=== PATIENT | male | born 1985 | race Caucasian/White ===

== ENCOUNTER 2016-06-23 05:10 | Emergency (ER) | payer SELFPAY ==
[~2016-06-23] VITALS: Ht 170.2 cm; Wt 90.7 kg
[~2016-06-23 05:10] MED LIST: HYDR-971 PO; SULF1TAB24 PO
[2016-06-23 06:05] LABS: BASO # 0.1 x10^3/uL (0.0-0.2); BASO % 1 % (0-3); EOS % 3 % (0-3); HEMATOCRIT 44.7 % (39.0-53.0); LYMPH # 3.7 x10^3/uL (1.0-4.8); LYMPH % 34 % (24-48); MEAN CORPUSCULAR HEMOGLOBIN 31 pg (25-35); MEAN CORPUSCULAR HGB CONC 34 g/dL (31-37); MEAN CORPUSCULAR VOLUME 93 fL (79-100); MONO % 8 % (0-9); NEUT % 53 % (31-73); PLATELET COUNT 258 x10^3/uL (140-400); RED BLOOD COUNT 4.81 x10^6/uL (4.30-5.70); RED CELL DISTRIBUTION WIDTH 13.6 % (11.5-14.5); WHITE BLOOD COUNT 10.8 x10^3/uL (4.0-11.0)
[2016-06-23 06:08] LABS: BILIRUBIN,URINE NEGATIVE (NEG); GLUCOSE,URINE NEGATIVE (NEG); NITRITE,URINE NEGATIVE (NEG); PH,URINE 6.5; PROTEIN,URINE NEGATIVE (NEG-TRACE); UROBILINOGEN,URINE 0.2 mg/dL (0.2 mg/dL)
[2016-06-23 06:09] LABS: BACTERIA,URINE 0 /HPF (0-FEW); RBC,URINE 0 /HPF (0-2); WBC,URINE 0 /HPF (0-4)
[2016-06-23] MEDS ORDERED: ONDANSETRON PF 4 MG/2 ML VIAL. ONE (06:14)
[2016-06-23] MEDS ORDERED: MORPHINE SULFATE 4 MG/ML DISP.SYRIN. ONE (06:14)
[2016-06-23 06:16] LABS: CALCIUM 8.9 mg/dL (8.5-10.1); CREATININE 0.8 mg/dL (0.7-1.3); GFR 113.5; POTASSIUM 3.5 mmol/L (3.5-5.1)
--- NOTE | 2016-06-23 06:18 | PHYS DOC ---
Past Medical History Past Medical History: No Pertinent History, Other Additional Past Medical Histor: lower back injury Past Surgical History: No Surgical History Alcohol Use: None Drug Use: None Adult General Chief Complaint Chief Complaint: ABDOMINAL PAIN HPI HPI Patient is a 30 year old male who presents with abdominal pain. Patient reports for the past few months he has been having intermittent pain in his RUQ. He says for the past 3 days he has been having "tight, stabbing" pain in his RUQ that is accompanied by nausea. The pain may be slightly better after eating. Otherwise no clear inciting or mitigating factors. He has not taken anything for pain. No other acute complaints. Review of Systems Review of Systems Constitutional: Denies fever or chills Eyes: Denies change in visual acuity or eye pain HENT: Denies nasal congestion or sore throat Respiratory: Denies cough or shortness of breath Cardiovascular: Denies chest pain GI: RUQ abdominal pain, nausea. Denies vomiting, bloody stools or diarrhea : Denies dysuria or hematuria Musculoskeletal: Denies back pain or joint pain Integument: Denies rash or skin lesions Neurologic: Denies headache, focal weakness or sensory changes Current Medications Current Medications Current Medications Medications (Trade) Dose Ordered Sig/Samantha Start Time Stop Time Status Last Admin Dose Admin Morphine Sulfate 4 mg STK-MED ONCE 06/23/16 06:14 06/23/16 06:15 DC Ondansetron HCl (Zofran) 4 mg STK-MED ONCE 06/23/16 06:14 06/23/16 06:15 DC Sodium Chloride (Iv Sodium Chloride 0.9% 1000ml Bag) 1,000 ml @ 1,000 mls/hr Q1H 06/23/16 06:30 06/23/16 07:29 06/23/16 06:15 1,000 MLS/HR Allergies Allergies Allergies Coded Allergies Type Severity Reaction Last Updated Verified No Known Drug Allergies 02/10/14 No Physical Exam Physical Exam Constitutional: Well developed, well nourished, no acute distress, non-toxic appearance HENT: Normocephalic, atraumatic, bilateral external ears normal Eyes: EOMI, conjunctiva normal, no discharge Neck: Normal range of motion, no stridor Cardiovascular: Heart rate normal, regular rhythm, no murmur Lungs & Thorax: Bilateral breath sounds clear to auscultation Abdomen: Bowel sounds normal, soft, non-distended, RUQ TTP without guarding or rebound Skin: Warm, dry, no erythema, no rash Extremities: No obvious deformity, no edema Neurologic: Alert and oriented X 3, no gross deficits noted Current Patient Data Vital Signs Vital Signs Date Time Temp Pulse Resp B/P Pulse Ox O2 Delivery O2 Flow Rate FiO2 06/23/16 06:16 16 Room Air 06/23/16 05:33 98.9 81 171/82 98 98.9 Lab Values Laboratory Tests Test 06/23/16 05:43 White Blood Count 10.8x10^3/uL (4.0-11.0) Red Blood Count 4.81x10^6/uL (4.30-5.70) Hemoglobin 15.0g/dL (13.0-17.5) Hematocrit 44.7% (39.0-53.0) Mean Corpuscular Volume 93fL (79-100) Mean Corpuscular Hemoglobin 31pg (25-35) Mean Corpuscular Hemoglobin Concent 34g/dL (31-37) Red Cell Distribution Width 13.6% (11.5-14.5) Platelet Count 258x10^3/uL (140-400) Neutrophils (%) (Auto) 53% (31-73) Lymphocytes (%) (Auto) 34% (24-48) Monocytes (%) (Auto) 8% (0-9) Eosinophils (%) (Auto) 3% (0-3) Basophils (%) (Auto) 1% (0-3) Neutrophils # (Auto) 5.8x10^3uL (1.8-7.7) Lymphocytes # (Auto) 3.7x10^3/uL (1.0-4.8) Monocytes # (Auto) 0.9x10^3/uL (0.0-1.1) Eosinophils # (Auto) 0.3x10^3/uL (0.0-0.7) Basophils # (Auto) 0.1x10^3/uL (0.0-0.2) Urine Collection Type Unknown Urine Color Yellow Urine Clarity Clear Urine pH 6.5 Urine Specific [place] <=1.005 Urine Protein Negativemg/dL (NEG-TRACE) Urine Glucose (UA) Negativemg/dL (NEG) Urine Ketones (Stick) Negativemg/dL (NEG) Urine Blood Negative (NEG) Urine Nitrite Negative (NEG) Urine Bilirubin Negative (NEG) Urine Urobilinogen Dipstick 0.2mg/dL (0.2 mg/dL) Urine Leukocyte Esterase Negative (NEG) Urine RBC 0/HPF (0-2) Urine WBC 0/HPF (0-4) Urine Bacteria 0/HPF (0-FEW) Sodium Level 142mmol/L (136-145) Potassium Level 3.5mmol/L (3.5-5.1) Chloride Level 105mmol/L (98-107) Carbon Dioxide Level 29mmol/L (21-32) Anion Gap 8 (6-14) Blood Urea Nitrogen 13mg/dL (8-26) Creatinine 0.8mg/dL (0.7-1.3) Estimated GFR (Cockcroft-Gault) 113.5 BUN/Creatinine Ratio 16 (6-20) Glucose Level 127mg/dL (70-99) H Calcium Level 8.9mg/dL (8.5-10.1) Total Bilirubin 0.6mg/dL (0.2-1.0) Aspartate Amino Transferase (AST) 14U/L (15-37) L Alanine Aminotransferase (ALT) 26U/L (16-63) Alkaline Phosphatase 75U/L (46-116) Total Protein 6.9g/dL (6.4-8.2) Albumin 3.9g/dL (3.4-5.0) Albumin/Globulin Ratio 1.3 (1.0-1.7) Lipase 129U/L (73-393) Laboratory Tests 06/23/16 05:43 Laboratory Tests 06/23/16 05:43 EKG EKG [] Radiology/Procedures Radiology/Procedures RUQ US: IMPRESSION - No acute sonographic abnormality. - Sludge filled gallbladder. Course & Med Decision Making Course & Med Decision Making Pertinent Labs and Imaging studies reviewed. (See chart for details) Patient is 30 year old male who presents with RUQ pain. DDx includes gallbladder disease, ulcer in duodenum, pancreatitis. Will check labs, UA, RUQ US. IVF, pain meds, nausea meds ordered for symptom relief. Labs and UA unremarkable. Imaging results as above. Discussed results with patient, as well as next steps in management of this. Will discharge with rx for pain meds, nausea meds, PPI. Given instructions for follow up and return precautions. Dragon Disclaimer Dragon Disclaimer This electronic medical record was generated, in whole or in part, using a voice recognition dictation system. Departure Departure Impression: Primary Impression: RUQ abdominal pain Disposition: HOME, SELF-CARE Condition: STABLE Referrals: NO PCP (PCP) YAMILA RAPHAEL MD Patient Instructions: Abdominal Pain (Nonspecific), Cholelithiasis Additional Instructions: Thank you for allowing us to provide care today in the Emergency Department. Take the provided medication as directed. Use caution when taking the pain medication as it can make you drowsy. Schedule a follow up appointment with your primary care doctor and with a surgeon using the provided contact information. Return promptly to the Emergency Department if you develop any new or concerning symptoms. Scripts Omeprazole 20 Mg Tablet.dr20 Mg PO DAILY #30 TAB Prov:ELIZABETH TORRES MD 06/23/16 Acetaminophen With Codeine (Tylenol With Codeine #3 Tablet)1 Each Tablet1 Tab PO PRN Q6HRS PRN PAIN #15 TAB Prov:ELIZABETH TORRES MD 06/23/16 Ondansetron (Zofran Odt)4 Mg Tab.rapdis1 Tab SL Q8HRS PRN NAUSEA #15 TAB Prov:ELIZABETH TORRES MD 06/23/16 ELIZABETH TORRES MD Jun 23, 2016 06:18
[2016-06-23 06:21] LABS: ALBUMIN 3.9 g/dL (3.4-5.0); ALBUMIN/GLOBULIN RATIO 1.3 (1.0-1.7); TOTAL BILIRUBIN 0.6 mg/dL (0.2-1.0); TOTAL PROTEIN 6.9 g/dL (6.4-8.2)
[2016-06-23] MEDS ORDERED: ONDANSETRON PF 4 MG/2 ML VIAL. IV ONE (06:30)
[2016-06-23] MEDS ORDERED: MORPHINE SULFATE 4 MG/ML DISP.SYRIN. IV ONE (06:30)
[2016-06-23] MEDS ORDERED: IV NORMAL SALINE 1000ML BAG 1,000 ML IV SCH (06:30)
--- NOTE | 2016-06-23 06:53 | RAD ---
PROCEDURE Right upper quadrant ultrasound dated 06/23/2016. HISTORY Right upper quadrant pain. TECHNIQUE Routine sonographic imaging performed. COMPARISON None. FINDINGS Liver is homogeneous in echogenicity. No focal hepatic mass. Biliary tree normal in caliber. Common bile duct measures 3 millimeter. Gallbladder is normal in size and echogenicity. No gallbladder wall thickening or pericholecystic fluid. No gallstones are seen. There is some dependent echogenic material consistent with sludge. Right kidney measures 11.2 centimeter in length without hydronephrosis. Left kidney was not imaged. Pancreas is not well visualized due to overlying bowel gas. No significant ascites. IMPRESSION - No acute sonographic abnormality. - Sludge filled gallbladder. Electronically signed by: Phan Motley (Jun 23, 2016 06:52:17)
[2016-06-23] MEDS ORDERED: ACET-704 PO (07:10)
[2016-06-23] MEDS ORDERED: ONDA4TAB10 SL (07:10)
[2016-06-23] MEDS ORDERED: OMEP20TA PO (07:10)
[2016-06-23 07:26] VITALS: BP 119/58
== END 2016-06-23 07:19 | disposition home or self-care (01) ==
LOC: ER 05:10
DX: R10.11 Right upper quadrant pain (principal); R11.0 Nausea
CPT/HCPCS: 36415; 76705; 80053; 81001; 83690; 85027; 96361; 96374; 96375; 99285; J2270; J2405; J7030

== ENCOUNTER 2017-03-03 21:26 | Inpatient (IN) | payer OTHER ==
[~2017-03-03] VITALS: Ht 170.2 cm; Wt 95.9 kg
[~2017-03-03 21:26] MED LIST changes: +ACET-704 PO; +OMEP20TA8 PO; +ONDA4TAB10 SL
[2017-03-03] MEDS ORDERED: IV NORMAL SALINE 500ML BAG 500 ML IV PRN (22:00)
[2017-03-03] MEDS ORDERED: VANCOMYCIN 2 GM in IV DEXTROSE 5% 500 ML IV ONE (22:30)
[2017-03-03] MEDS ORDERED: ACETAMINOPHEN 500 MG TABLET PO ONE (22:30)
[2017-03-03 22:39] LABS: BASO # 0.1 x10^3/uL (0.0-0.2); BASO % 1 % (0-3); EOS % 2 % (0-3); HEMATOCRIT 45.2 % (39.0-53.0); HEMOGLOBIN 15.3 g/dL (13.0-17.5); LYMPH # 2.3 x10^3/uL (1.0-4.8); LYMPH % 14 % (24-48); MEAN CORPUSCULAR HEMOGLOBIN 32 pg (25-35); MEAN CORPUSCULAR HGB CONC 34 g/dL (31-37); MEAN CORPUSCULAR VOLUME 95 fL (79-100); MONO % 8 % (0-9); NEUT % 76 % (31-73); PLATELET COUNT 259 x10^3/uL (140-400); RED BLOOD COUNT 4.76 x10^6/uL (4.30-5.70)
--- NOTE | 2017-03-03 22:46 | PHYS DOC ---
Past Medical History Past Medical History: No Pertinent History, Other Additional Past Medical Histor: lower back injury Past Surgical History: No Surgical History Alcohol Use: None Drug Use: None Adult General Chief Complaint Chief Complaint: ABSCESS HPI HPI Patient is a 31 year old male with history of smoking and pilonidal cysts who presents today complaining of a pilonidal cyst on his rectum for 3 years that started getting worse in the last 3 days. Patient states the area has grown bigger and red. He states he is also having subjective fevers as well as nausea but no vomiting. PCP none Review of Systems Review of Systems Constitutional: Subjective fevers Eyes: Denies change in visual acuity, redness, or eye pain [] HENT: Denies nasal congestion or sore throat [] Respiratory: Denies cough or shortness of breath [] Cardiovascular: No additional information not addressed in HPI [] GI: Reports nausea Denies abdominal pain, vomiting, bloody stools or diarrhea [ ] : Denies dysuria or hematuria [] Musculoskeletal: Denies back pain or joint pain [] Integument: Pilonidal cyst Neurologic: Denies headache, focal weakness or sensory changes [] All other systems were reviewed and found to be within normal limits, except as documented in this note. Current Medications Current Medications Current Medications Medications (Trade) Dose Ordered Sig/Samantha Start Time Stop Time Status Last Admin Dose Admin Acetaminophen (Tylenol) 1,000 mg 1X ONCE 03/03/17 22:30 03/03/17 22:31 DC 03/03/17 22:49 1,000 MG Sodium Chloride 500 ml @ 1,000 mls/hr PRN Q30MIN PRN 03/03/17 22:00 Vancomycin HCl (Vanco Per Pharmacy) 1 each PRN DAILY PRN 03/03/17 22:00 UNV Vancomycin HCl 2 gm/Dextrose 500 ml @ 250 mls/hr 1X ONCE 03/03/17 22:30 03/04/17 00:29 03/03/17 22:49 250 MLS/HR Allergies Allergies Allergies Coded Allergies Type Severity Reaction Last Updated Verified No Known Drug Allergies 02/10/14 No Physical Exam Physical Exam Constitutional: Well developed, well nourished, no acute distress, non-toxic appearance. [] HENT: Normocephalic, atraumatic, bilateral external ears normal, oropharynx moist, no oral exudates, nose normal. [] Eyes: PERRLA, EOMI, conjunctiva normal, no discharge. [] Neck: Normal range of motion, no tenderness, supple, no stridor. [] Cardiovascular:Heart rate regular rhythm, no murmur [] Lungs & Thorax: Bilateral breath sounds clear to auscultation [] Abdomen: Bowel sounds normal, soft, no tenderness, no masses, no pulsatile masses. [] Skin: Warm, dry, no erythema, no rash. [] Rectum with induration consistent of pilonidal cyst. There is cellulitis approximately 10 x 4 cm on the right buttock and another area of cellulitis approximately 2 x 1 cm on the left buttock. There is no fluctuance to the cyst. Back: No tenderness, no CVA tenderness. [] Extremities: No tenderness, no cyanosis, no clubbing, ROM intact, no edema. [] Neurologic: Alert and oriented X 3, normal motor function, normal sensory function, no focal deficits noted. [] Psychologic: Affect normal, judgement normal, mood normal. [] Current Patient Data Vital Signs Vital Signs Date Time Temp Pulse Resp B/P (MAP) Pulse Ox O2 Delivery O2 Flow Rate FiO2 03/03/17 22:32 112 22 146/71 (96) 96 Room Air 03/03/17 21:28 100.4 100.4 Lab Values Laboratory Tests Test 03/03/17 22:30 White Blood Count 16.0 x10^3/uL (4.0-11.0) H Red Blood Count 4.76 x10^6/uL (4.30-5.70) Hemoglobin 15.3 g/dL (13.0-17.5) Hematocrit 45.2 % (39.0-53.0) Mean Corpuscular Volume 95 fL (79-100) Mean Corpuscular Hemoglobin 32 pg (25-35) Mean Corpuscular Hemoglobin Concent 34 g/dL (31-37) Red Cell Distribution Width 13.0 % (11.5-14.5) Platelet Count 259 x10^3/uL (140-400) Neutrophils (%) (Auto) 76 % (31-73) H Lymphocytes (%) (Auto) 14 % (24-48) L Monocytes (%) (Auto) 8 % (0-9) Eosinophils (%) (Auto) 2 % (0-3) Basophils (%) (Auto) 1 % (0-3) Neutrophils # (Auto) 12.2 x10^3uL (1.8-7.7) H Lymphocytes # (Auto) 2.3 x10^3/uL (1.0-4.8) Monocytes # (Auto) 1.2 x10^3/uL (0.0-1.1) H Eosinophils # (Auto) 0.2 x10^3/uL (0.0-0.7) Basophils # (Auto) 0.1 x10^3/uL (0.0-0.2) Erythrocyte Sedimentation Rate 8 (0-15) Prothrombin Time 12.0 SEC (11.7-14.0) Prothrombin Time INR 0.9 (0.8-1.1) PTT 32 SEC (24-38) Sodium Level 141 mmol/L (136-145) Potassium Level 4.2 mmol/L (3.5-5.1) Chloride Level 103 mmol/L (98-107) Carbon Dioxide Level 28 mmol/L (21-32) Anion Gap 10 (6-14) Blood Urea Nitrogen 17 mg/dL (8-26) Creatinine 0.8 mg/dL (0.7-1.3) Estimated GFR (Cockcroft-Gault) 112.8 BUN/Creatinine Ratio 21 (6-20) H Glucose Level 99 mg/dL (70-99) Lactic Acid Level 1.2 mmol/L (0.4-2.0) Calcium Level 9.2 mg/dL (8.5-10.1) Total Bilirubin 0.3 mg/dL (0.2-1.0) Aspartate Amino Transferase (AST) 36 U/L (15-37) Alanine Aminotransferase (ALT) 84 U/L (16-63) H Alkaline Phosphatase 94 U/L (46-116) C-Reactive Protein, Quantitative 32.2 mg/L (0-3.3) H Total Protein 6.8 g/dL (6.4-8.2) Albumin 3.8 g/dL (3.4-5.0) Albumin/Globulin Ratio 1.3 (1.0-1.7) Laboratory Tests 03/03/17 22:30 Laboratory Tests 03/03/17 22:30 EKG EKG [] Radiology/Procedures Radiology/Procedures []PROCEDURE: CT ABD PELV W/ IV CONTRST ONLY PQRS Compliance Statement: One or more of the following individualized dose reduction techniques were utilized for this examination: 1. Automated exposure control 2. Adjustment of the mA and/or kV according to patient size 3. Use of iterative reconstruction technique CT abdomen/pelvis with contrast 03/03/2017 INDICATION: Pilonidal abscess. COMPARISON: None available TECHNIQUE: Multiple axial CT images of the abdomen and pelvis were obtained after the intravenous administration of 75 cc Omnipaque 300. Coronal and sagittal reformats are provided. FINDINGS: There is subsegmental atelectasis at the right lung base. Heart size is within normal limits. The liver, spleen, bilateral adrenal glands, pancreas and gallbladder are within normal limits. The abdominal aorta is normal in course and caliber. There are no pathologically enlarged lymph nodes in abdomen or pelvis. There is no free fluid or free intraperitoneal air. The kidneys enhance symmetrically. No suspicious renal mass is identified. There are no renal calculi identified. There is no hydronephrosis. No calculi within the ureters or urinary bladder. Urinary bladder is within normal limits given degree of distention. Small large bowel are normal in caliber without evidence for bowel obstruction. Distal colon is decompressed, limiting evaluation. Normal appendix is visualized. No pericolonic inflammatory changes are present. There are no suspicious pelvic masses. Prostate and seminal vesicles appear normal. No suspicious osseous lesions are identified. There is a pilonidal rim-enhancing collection measuring 2.4 x 2.8 x 3.3 cm compatible with an abscess. Extensive subcutaneous fat infiltration is noted compatible with edema. There is associated skin thickening. IMPRESSION: Findings are compatible with a pilonidal abscess measuring 2.4 x 2.8 x 2.3 cm. No underlying fistulous tract is suspected. Electronically signed by: Alondra Hernandez MD (03/03/2017 11:41 PM) [facility] Course & Med Decision Making Course & Med Decision Making Pertinent Labs and Imaging studies reviewed. (See chart for details) This is a 31-year-old male patient presenting today with pilonidal cyst. He has had it for 3 years but got worse in the last 3 days. Patient is tachycardic with a HR of 113 and fever of 100.4. He has history of smoking and was encouraged to consider smoking cessation. CBC with a WBC of 16.0. Patient will be admitted. Consult to be placed for general surgery for tomorrow morning. Dr. Gonsalves accepted patient for admission. He was started on IV fluids and sepsis protocol including antibiotics. CT of the abdomen and pelvic confirmed pilonidal abscess. Dragon Disclaimer Dragon Disclaimer This electronic medical record was generated, in whole or in part, using a voice recognition dictation system. Departure Departure Impression: Primary Impression: Cellulitis and abscess of buttock Additional Impressions: Smoking addiction Pilonidal abscess Disposition: ADMITTED INPATIENT Condition: STABLE Referrals: NO PCP (PCP) Problem Qualifiers ROSITA MEJÍA [employer] ADMIN[employer]RATOR Mar 03, 2017 22:46
[2017-03-03] MEDS: IV NORMAL SALINE 1000ML BAG 1,000 ML IV SCH ×3 (22:48→23:24)
[2017-03-03 22:50] LABS: INR 0.9 (0.8-1.1)
[2017-03-03 23:02] LABS: CALCIUM 9.2 mg/dL (8.5-10.1); CREATININE 0.8 mg/dL (0.7-1.3); GFR 112.8; POTASSIUM 4.2 mmol/L (3.5-5.1)
[2017-03-03 23:07] LABS: ALBUMIN 3.8 g/dL (3.4-5.0); ALBUMIN/GLOBULIN RATIO 1.3 (1.0-1.7); C-REACTIVE PROTEIN 32.2 mg/L (0-3.3); TOTAL BILIRUBIN 0.3 mg/dL (0.2-1.0); TOTAL PROTEIN 6.8 g/dL (6.4-8.2)
[2017-03-03] MEDS ORDERED: ACETAMINOPHEN 325 MG TABLET. PO PRN (23:15)
[2017-03-03] MEDS ORDERED: IV NORMAL SALINE 1000ML BAG 1,000 ML IV ONE (23:15)
[2017-03-03] MEDS ORDERED: ONDANSETRON PF 4 MG/2 ML VIAL. IV PRN (23:15)
[2017-03-03] MEDS ORDERED: IOHEXOL 300 MG/ML 100ML VIAL. IV ONE (23:15)
[2017-03-03] MEDS ORDERED: CONTRAST GIVEN MC PRN (23:30)
--- NOTE | 2017-03-03 23:45 | RAD ---
PQRS Compliance Statement: One or more of the following individualized dose reduction techniques were utilized for this examination: 1. Automated exposure control 2. Adjustment of the mA and/or kV according to patient size 3. Use of iterative reconstruction technique CT abdomen/pelvis with contrast 03/03/2017 INDICATION: Pilonidal abscess. COMPARISON: None available TECHNIQUE: Multiple axial CT images of the abdomen and pelvis were obtained after the intravenous administration of 75 cc Omnipaque 300. Coronal and sagittal reformats are provided. FINDINGS: There is subsegmental atelectasis at the right lung base. Heart size is within normal limits. The liver, spleen, bilateral adrenal glands, pancreas and gallbladder are within normal limits. The abdominal aorta is normal in course and caliber. There are no pathologically enlarged lymph nodes in abdomen or pelvis. There is no free fluid or free intraperitoneal air. The kidneys enhance symmetrically. No suspicious renal mass is identified. There are no renal calculi identified. There is no hydronephrosis. No calculi within the ureters or urinary bladder. Urinary bladder is within normal limits given degree of distention. Small large bowel are normal in caliber without evidence for bowel obstruction. Distal colon is decompressed, limiting evaluation. Normal appendix is visualized. No pericolonic inflammatory changes are present. There are no suspicious pelvic masses. Prostate and seminal vesicles appear normal. No suspicious osseous lesions are identified. There is a pilonidal rim-enhancing collection measuring 2.4 x 2.8 x 3.3 cm compatible with an abscess. Extensive subcutaneous fat infiltration is noted compatible with edema. There is associated skin thickening. IMPRESSION: Findings are compatible with a pilonidal abscess measuring 2.4 x 2.8 x 2.3 cm. No underlying fistulous tract is suspected. Electronically signed by: Alondra Hernandez MD (03/03/2017 11:41 PM) [facility]
[2017-03-03 23:53] VITALS: BP 134/82
[2017-03-04] VITALS (14 sets, daily range): BP systolic 98–144; BP diastolic 48–88
[2017-03-04] MEDS: IBUPROFEN 800 MG TABLET. PO PRN ×2 (00:10→20:36)
[2017-03-04] MEDS: MORPHINE SULFATE 4 MG/ML DISP.SYRIN. IV PRN ×5 (00:10→16:06)
[2017-03-04] MEDS: VANCOMYCIN PER PHARMACY MC PRN ×3 (00:21→23:37)
[2017-03-04 05:35] LABS: BASO # 0.1 x10^3/uL (0.0-0.2); BASO % 1 % (0-3); EOS % 2 % (0-3); HEMATOCRIT 45.5 % (39.0-53.0); LYMPH # 2.7 x10^3/uL (1.0-4.8); LYMPH % 20 % (24-48); MEAN CORPUSCULAR HEMOGLOBIN 31 pg (25-35); MEAN CORPUSCULAR HGB CONC 33 g/dL (31-37); MEAN CORPUSCULAR VOLUME 95 fL (79-100); MONO % 8 % (0-9); NEUT % 70 % (31-73); PLATELET COUNT 229 x10^3/uL (140-400); RED CELL DISTRIBUTION WIDTH 12.9 % (11.5-14.5); WHITE BLOOD COUNT 13.6 x10^3/uL (4.0-11.0)
[2017-03-04 06:06] LABS: CALCIUM 8.6 mg/dL (8.5-10.1); CREATININE 0.8 mg/dL (0.7-1.3)
[2017-03-04 06:07] LABS: GFR 112.8; POTASSIUM 3.7 mmol/L (3.5-5.1)
[2017-03-04] MEDS ORDERED: VANCOMYCIN 1.75 GM in IV DEXTROSE 5% 500 ML IV SCH (07:00)
[2017-03-04] MEDS: NICOTINE 21MG PATCH. TD SCH (09:00)
[2017-03-04] MEDS ORDERED: VANCOMYCIN PER PHARMACY MC SCH (09:00)
--- NOTE | 2017-03-04 10:58 | PDOC2 ---
SUNG MARIA MERCHANDISER RETAIL REPRESENTATIVE 03/04/17 1058: CONSULT Date of Consult Date of Consult DATE: 03/04/17 TIME: 10:53 Reason for Consult Reason for Consult: abscess Referring Physician Referring Physician: ER Identification/Chief Complaint Chief Complaint abscess Problems: Source Source: Chart review, Patient History of Present Illness Reason for Visit: pain to coccyx x 3 days. Increased pain and swelling. Started yesterday with fevers and chills. Reports history of these similar, but never this bad and has not required surgery Past Medical History Past Medical History no pertinent hx Past Surgical History Past Surgical History: No pertinent history Family History Family History: Diabetes Social History <1 pack per day ALCOHOL: none Drugs: None Lives: with Family Current Problem List Problem List Problems Medical Problems: (1) Cellulitis and abscess of buttock Status: Acute (2) Pilonidal abscess Status: Acute (3) Pilonidal cyst Status: Acute (4) Smoking addiction Status: Acute Current Medications Current Medications Current Medications Sodium Chloride 1,000 ml @ 3,390 mls/hr Q18M IV Last administered on 22:48; Start 03/03/17 at 22:30; Stop 03/03/17 at 23:29; Status DC Sodium Chloride 500 ml @ 1,000 mls/hr PRN Q30MIN PRN IV SEE COMMENTS; Start 03/03/17 at 22:00 Vancomycin HCl (Vanco Per Pharmacy) 1 each PRN DAILY PRN MC SEE COMMENTS Last administered on 03/04/17 00:21; Start 03/03/17 at 22:00 Acetaminophen (Tylenol) 1,000 mg 1X ONCE PO Last administered on 03/03/17 22 :49; Start 03/03/17 at 22:30; Stop 03/03/17 at 22:31; Status DC Vancomycin HCl 2 gm/Dextrose 500 ml @ 250 mls/hr 1X ONCE IV Last administered on 03/03/17 22:49; Start 03/03/17 at 22:30; Stop 03/04/17 at 00 :29; Status DC Ondansetron HCl (Zofran) 4 mg PRN Q8HRS PRN IV NAUSEA/VOMITING; Start at 23:15; Stop 03/04/17 at 23:14 Morphine Sulfate 2 mg PRN Q2HR PRN IV PAIN Last administered on 03/04/17 08: 18; Start 03/03/17 at 23:15; Stop 03/04/17 at 23:14 Acetaminophen (Tylenol) 650 mg PRN Q4HRS PRN PO FEVER; Start 03/03/17 at 23:15 ; Stop 03/04/17 at 23:14 Ibuprofen (Motrin) 800 mg PRN Q8HRS PRN PO FEVER Last administered on 00:10; Start 03/03/17 at 23:15 Sodium Chloride 1,000 ml @ 125 mls/hr 1X ONCE IV Last administered on 02:31; Start 03/03/17 at 23:15; Stop 03/04/17 at 07:14; Status DC Vancomycin HCl (Vanco Per Pharmacy) 1 each DAILY MC ; Start 03/04/17 at 09:00; Status UNV Nicotine (Nicoderm Cq 21mg) 1 patch DAILY TD ; Start 03/04/17 at 09:00 Iohexol (Omnipaque 300 Mg/ml) 75 ml 1X ONCE IV Last administered on 23:26; Start 03/03/17 at 23:15; Stop 03/03/17 at 23:16; Status DC Info (Do NOT chart on this entry -- for MONITORING) 1 each PRN DAILY PRN MC SEE COMMENTS; Start 03/03/17 at 23:30; Stop 03/05/17 at 23:29 Vancomycin HCl 1.75 gm/Dextrose 500 ml @ 250 mls/hr Q8H IV Last administered on 03/04/17 06:12; Start 03/04/17 at 07:00 Vancomycin HCl 1 each 1X ONCE MC ; Start 03/04/17 at 22:30; Stop 03/04/17 at 22:31 Active Scripts Active Omeprazole 20 Mg Tablet. 20 Mg PO DAILY Tylenol With Codeine #3 Tablet (Acetaminophen/Codeine Phosphate) 1 Each Tablet 1 Tab PO PRN Q6HRS PRN Zofran Odt (Ondansetron) 4 Mg Tab.rapdis 1 Tab SL Q8HRS PRN [place] 5-325 Tablet (Acetaminophen/Hydrocodone Bitart) 1 Each Tablet 1 Tab PO PRN Q6HRS PRN Bactrim Ds Tablet (Sulfamethoxazole/Trimethoprim) 1 Each Tablet 1 Tab PO BID Allergies Allergies: Coded Allergies: No Known Drug Allergies (Unverified , 02/10/14) ROS General: YES: Fatigue, Appetite (loss) PSYCHOLOGICAL ROS: No: Anxiety, Depression Eyes: No Blurry vision, No Double vision HEENT: No: Heacaches, Sore Throat Hematological and Lymphatic: No: Bleeding Problems, Blood Clots Respiratory: No: Cough, Shortness of breath Cardiovascular: No Chest Pain, No Palpitations Gastrointestinal: No Diarrhea, No Constipation Genitourinary: No Dysuria, No Hematuria Musculoskeletal: Yes Swelling In: (coccyx), No Joint Pain Neurological: No Confusion, No Impaired Coord/balance Skin: Yes Other (see hpi) Physical Exam General: Alert, Oriented X3, Cooperative, No acute distress HEENT: PERRLA, Mucous membr. moist/pink Lungs: Clear to auscultation, Normal air movement Heart: Regular rate, Normal S1, Normal S2, No murmurs Abdomen: Normal bowel sounds, Soft, No tenderness, No hepatosplenomegaly, No masses Extremities: No clubbing, No cyanosis, No edema, Normal pulses, No tenderness/ swelling Skin: Other (coccyx with erythema, induration, tenderness and fluctuance) Neuro: Normal gait, Normal speech Psych/Mental Status: Mental status NL, Mood NL MUSCULOSKELETAL: No deformity, No swelling Vitals VITALS Vital Signs Date Time Temp Pulse Resp B/P (MAP) Pulse Ox O2 Delivery O2 Flow Rate FiO2 03/04/17 10:37 Room Air 03/04/17 06:31 20 93 03/04/17 03:00 99.2 102 127/76 (93) 99.2 Labs Labs Laboratory Tests Test 03/03/17 22:30 03/04/17 04:20 White Blood Count 16.0 x10^3/uL (4.0-11.0) 13.6 x10^3/uL (4.0-11.0) Red Blood Count 4.76 x10^6/uL (4.30-5.70) 4.80 x10^6/uL (4.30-5.70) Hemoglobin 15.3 g/dL (13.0-17.5) 15.0 g/dL (13.0-17.5) Hematocrit 45.2 % (39.0-53.0) 45.5 % (39.0-53.0) Mean Corpuscular Volume 95 fL (79-100) 95 fL (79-100) Mean Corpuscular Hemoglobin 32 pg (25-35) 31 pg (25-35) Mean Corpuscular Hemoglobin Concent 34 g/dL (31-37) 33 g/dL (31-37) Red Cell Distribution Width 13.0 % (11.5-14.5) 12.9 % (11.5-14.5) Platelet Count 259 x10^3/uL (140-400) 229 x10^3/uL (140-400) Neutrophils (%) (Auto) 76 % (31-73) 70 % (31-73) Lymphocytes (%) (Auto) 14 % (24-48) 20 % (24-48) Monocytes (%) (Auto) 8 % (0-9) 8 % (0-9) Eosinophils (%) (Auto) 2 % (0-3) 2 % (0-3) Basophils (%) (Auto) 1 % (0-3) 1 % (0-3) Neutrophils # (Auto) 12.2 x10^3uL (1.8-7.7) 9.5 x10^3uL (1.8-7.7) Lymphocytes # (Auto) 2.3 x10^3/uL (1.0-4.8) 2.7 x10^3/uL (1.0-4.8) Monocytes # (Auto) 1.2 x10^3/uL (0.0-1.1) 1.1 x10^3/uL (0.0-1.1) Eosinophils # (Auto) 0.2 x10^3/uL (0.0-0.7) 0.3 x10^3/uL (0.0-0.7) Basophils # (Auto) 0.1 x10^3/uL (0.0-0.2) 0.1 x10^3/uL (0.0-0.2) Erythrocyte Sedimentation Rate 8 (0-15) Prothrombin Time 12.0 SEC (11.7-14.0) Prothromb Time International Ratio 0.9 (0.8-1.1) Activated Partial Thromboplast Time 32 SEC (24-38) Sodium Level 141 mmol/L (136-145) 141 mmol/L (136-145) Potassium Level 4.2 mmol/L (3.5-5.1) 3.7 mmol/L (3.5-5.1) Chloride Level 103 mmol/L (98-107) 107 mmol/L (98-107) Carbon Dioxide Level 28 mmol/L (21-32) 25 mmol/L (21-32) Anion Gap 10 (6-14) 9 (6-14) Blood Urea Nitrogen 17 mg/dL (8-26) 15 mg/dL (8-26) Creatinine 0.8 mg/dL (0.7-1.3) 0.8 mg/dL (0.7-1.3) Estimated GFR (Cockcroft-Gault) 112.8 112.8 BUN/Creatinine Ratio 21 (6-20) Glucose Level 99 mg/dL (70-99) 91 mg/dL (70-99) Lactic Acid Level 1.2 mmol/L (0.4-2.0) Calcium Level 9.2 mg/dL (8.5-10.1) 8.6 mg/dL (8.5-10.1) Total Bilirubin 0.3 mg/dL (0.2-1.0) Aspartate Amino Transf (AST/SGOT) 36 U/L (15-37) Alanine Aminotransferase (ALT/SGPT) 84 U/L (16-63) Alkaline Phosphatase 94 U/L (46-116) C-Reactive Protein, Quantitative 32.2 mg/L (0-3.3) Total Protein 6.8 g/dL (6.4-8.2) Albumin 3.8 g/dL (3.4-5.0) Albumin/Globulin Ratio 1.3 (1.0-1.7) Procalcitonin < 0.10 ng/mL (0.00-0.10) Laboratory Tests Test 03/03/17 22:30 03/04/17 04:20 White Blood Count 16.0 x10^3/uL (4.0-11.0) 13.6 x10^3/uL (4.0-11.0) Red Blood Count 4.76 x10^6/uL (4.30-5.70) 4.80 x10^6/uL (4.30-5.70) Hemoglobin 15.3 g/dL (13.0-17.5) 15.0 g/dL (13.0-17.5) Hematocrit 45.2 % (39.0-53.0) 45.5 % (39.0-53.0) Mean Corpuscular Volume 95 fL (79-100) 95 fL (79-100) Mean Corpuscular Hemoglobin 32 pg (25-35) 31 pg (25-35) Mean Corpuscular Hemoglobin Concent 34 g/dL (31-37) 33 g/dL (31-37) Red Cell Distribution Width 13.0 % (11.5-14.5) 12.9 % (11.5-14.5) Platelet Count 259 x10^3/uL (140-400) 229 x10^3/uL (140-400) Neutrophils (%) (Auto) 76 % (31-73) 70 % (31-73) Lymphocytes (%) (Auto) 14 % (24-48) 20 % (24-48) Monocytes (%) (Auto) 8 % (0-9) 8 % (0-9) Eosinophils (%) (Auto) 2 % (0-3) 2 % (0-3) Basophils (%) (Auto) 1 % (0-3) 1 % (0-3) Neutrophils # (Auto) 12.2 x10^3uL (1.8-7.7) 9.5 x10^3uL (1.8-7.7) Lymphocytes # (Auto) 2.3 x10^3/uL (1.0-4.8) 2.7 x10^3/uL (1.0-4.8) Monocytes # (Auto) 1.2 x10^3/uL (0.0-1.1) 1.1 x10^3/uL (0.0-1.1) Eosinophils # (Auto) 0.2 x10^3/uL (0.0-0.7) 0.3 x10^3/uL (0.0-0.7) Basophils # (Auto) 0.1 x10^3/uL (0.0-0.2) 0.1 x10^3/uL (0.0-0.2) Erythrocyte Sedimentation Rate 8 (0-15) Prothrombin Time 12.0 SEC (11.7-14.0) Prothromb Time International Ratio 0.9 (0.8-1.1) Activated Partial Thromboplast Time 32 SEC (24-38) Sodium Level 141 mmol/L (136-145) 141 mmol/L (136-145) Potassium Level 4.2 mmol/L (3.5-5.1) 3.7 mmol/L (3.5-5.1) Chloride Level 103 mmol/L (98-107) 107 mmol/L (98-107) Carbon Dioxide Level 28 mmol/L (21-32) 25 mmol/L (21-32) Anion Gap 10 (6-14) 9 (6-14) Blood Urea Nitrogen 17 mg/dL (8-26) 15 mg/dL (8-26) Creatinine 0.8 mg/dL (0.7-1.3) 0.8 mg/dL (0.7-1.3) Estimated GFR (Cockcroft-Gault) 112.8 112.8 BUN/Creatinine Ratio 21 (6-20) Glucose Level 99 mg/dL (70-99) 91 mg/dL (70-99) Lactic Acid Level 1.2 mmol/L (0.4-2.0) Calcium Level 9.2 mg/dL (8.5-10.1) 8.6 mg/dL (8.5-10.1) Total Bilirubin 0.3 mg/dL (0.2-1.0) Aspartate Amino Transf (AST/SGOT) 36 U/L (15-37) Alanine Aminotransferase (ALT/SGPT) 84 U/L (16-63) Alkaline Phosphatase 94 U/L (46-116) C-Reactive Protein, Quantitative 32.2 mg/L (0-3.3) Total Protein 6.8 g/dL (6.4-8.2) Albumin 3.8 g/dL (3.4-5.0) Albumin/Globulin Ratio 1.3 (1.0-1.7) Procalcitonin < 0.10 ng/mL (0.00-0.10) Assessment/Plan Assessment/Plan pilonidal cyst abscess NPO, plan I&D today Encourage tobacco cessation JESSI ROBERTO MD 03/04/17 1210: CONSULT Allergies Allergies: Coded Allergies: No Known Drug Allergies (Unverified , 02/10/14) Assessment/Plan Assessment/Plan Patient seen and examined by me, complains of pain in the midline by buttocks. Area of erythema and swelling pilonidal area TTP CT review showing pilonidal abscess. Plan for I&D today. Agree with Mary's assessment and plan. SUNG MARIA APRN Mar 04, 2017 10:58 JESSI ROBERTO MD Mar 04, 2017 12:10
[2017-03-04] MEDS ORDERED: IV RINGERS,LACTATED 1000ML 1,000 ML IV SCH (13:39)
[2017-03-04] MEDS ORDERED: fentaNYL PF VIAL 100 MCG/2 ML VIAL IV PRN ×2 (13:45)
[2017-03-04] MEDS ORDERED: HYDROmorphone 2 MG/ML VIAL IV PRN (13:45)
[2017-03-04] MEDS ORDERED: MORPHINE SULFATE 4 MG/ML DISP.SYRIN. IV PRN ×2 (13:45→15:30)
[2017-03-04] MEDS ORDERED: PROCHLORPERAZINE 10 MG/2 ML VIAL. IV PRN (13:45)
[2017-03-04] MEDS ORDERED: ONDANSETRON PF 4 MG/2 ML VIAL. IV PRN ×2 (13:45→15:30)
[2017-03-04] MEDS ORDERED: LIDOCAINE 1% PF 2 ML VIAL. ID PRN (13:45)
[2017-03-04] MEDS ORDERED: PROPOFOL 20 ML IV ONE ×2 (13:50→14:23)
[2017-03-04] MEDS ORDERED: ONDANSETRON PF 4 MG/2 ML VIAL. ONE (13:50)
[2017-03-04] MEDS ORDERED: LIDOCAINE 2% PF Vial for OR 5 ML VIAL. ONE (13:50)
[2017-03-04] MEDS ORDERED: DEXAMETHASONE SOD PHOS 20 MG/5 ML VIAL. ONE (13:50)
[2017-03-04] MEDS ORDERED: ROCURONIUM 50 MG/5 ML VIAL. ONE (13:50)
[2017-03-04] MEDS ORDERED: fentaNYL PF VIAL 100 MCG/2 ML VIAL ONE ×3 (13:51→14:49)
[2017-03-04] MEDS ORDERED: SUCCINYLCHOLINE 200 MG/10 ML VIAL. ONE (13:51)
[2017-03-04] MEDS ORDERED: KETOROLAC 30 MG/ML INJ FOR OR. INJ ONE (14:18)
[2017-03-04] MEDS ORDERED: NEOSTIGMINE 10 MG/10 ML VIAL. ONE (14:26)
[2017-03-04] MEDS ORDERED: GLYCOPYRROLATE 1 MG/5 ML VIAL. ONE (14:26)
--- NOTE | 2017-03-04 14:29 | PDOC4 ---
Operative Note Operative Note Date: 03/04/2017 Preoperative diagnosis: Pilonidal cyst abscess Postoperative diagnosis: Same Procedure: Incision and drainage of pilonidal cyst abscess Surgeon: Raji Specimen: Cultures Dictation: Patient is a 31-year-old male was matted to the hospital with a abscess of the pilonidal cyst procedure of incision and drainage of abscess was explained to the patient detail was benefits were also discussed including bleeding infection alternatives to this procedure also discussed the patient who seemed understanding gave both verbal and written consent to have the procedure performed. Patient was taken to the operating room placed in the supine position general anesthesia was initiated once patient was asleep and intubated he was then repositioned in the prone positioning and his buttocks was prepped and draped in usual sterile fashion using Betadine solution. An area over the abscess skin was incised with a 10 blade scalpel there was fair amount of purulent drainage this was cultured area wound was further opened with hemostat allowing for drainage of all the purulent material the wound was then irrigated with copious amounts of normal saline and suctioned dry left cautery was used for hemostasis. And packed with iodoform Nu Gauze half-inch. Dressed with 4 x 4's and Medipore tape. Patient was waken next made in the operative room taken recovery in stable condition all sponge instrument needle counts listed as correct estimated blood loss 10 mL. JESSI ROBERTO MD Mar 04, 2017 14:29
[2017-03-04] MEDS ORDERED: PROCHLORPERAZINE 10 MG/2 ML VIAL. ONE (14:49)
--- NOTE | 2017-03-04 15:21 | PDOC1 ---
History and Physical Date of Admission Date of Admission 03/04/17 Identification/Chief Complaint Chief Complaint pilonidal cyst pain Problems: Source Source: Chart review, Patient History of Present Illness History of Present Illness HPI Patient is a 31 year old male with history of smoking and pilonidal cysts came to ER for pain. He has had this pilonidal cyst on his rectum for 3 years and getting worse for 3ds. fever, no chills, + nausea, no vomiting. CT SHOWED the abscess 2-3cm. Past Medical History Past Medical History lower back injury Past Surgical History Past Surgical History: No pertinent history Family History Family History: Diabetes Social History Smoke: No ALCOHOL: none Drugs: None Current Problem List Problem List Problems Medical Problems: (1) Cellulitis and abscess of buttock Status: Acute (2) Pilonidal abscess Status: Acute (3) Pilonidal cyst Status: Acute (4) Smoking addiction Status: Acute Current Medications Current Medications Current Medications Medications (Trade) Dose Ordered Sig/Samantha Start Time Stop Time Status Last Admin Dose Admin Acetaminophen (Tylenol) 650 mg PRN Q4HRS PRN 03/03/17 23:15 03/04/17 23:14 Dexamethasone Sodium Phosphate (Decadron) 20 mg STK-MED ONCE 03/04/17 13:50 03/04/17 13:51 DC Fentanyl Citrate (Fentanyl 2ml Vial) 100 mcg STK-MED ONCE 03/04/17 14:49 03/04/17 14:50 DC Glycopyrrolate (Robinul) 1 mg STK-MED ONCE 03/04/17 14:26 03/04/17 14:27 DC Hydromorphone HCl (Dilaudid) 0.5 mg PRN Q10MIN PRN 03/04/17 13:45 03/04/17 20:00 Ibuprofen (Motrin) 800 mg PRN Q8HRS PRN 03/03/17 23:15 03/04/17 00:10 800 MG Info (Do NOT chart on this entry -- for MONITORING) 1 each PRN DAILY PRN 03/03/17 23:30 03/05/17 23:29 Iohexol (Omnipaque 300 Mg/ml) 75 ml 1X ONCE 03/03/17 23:15 03/03/17 23:16 DC 03/03/17 23:26 75 ML Ketorolac Tromethamine (Toradol For Or Only) 30 mg STK-MED ONCE 03/04/17 14:18 03/04/17 14:19 DC Lidocaine HCl (Lidocaine Pf 2% Vial) 5 ml STK-MED ONCE 03/04/17 13:50 03/04/17 13:51 DC Lidocaine HCl (Xylocaine-Mpf 1% Vial) 2 ml 1X PRN PRN 03/04/17 13:45 03/04/17 20:00 Morphine Sulfate 1 mg PRN Q10MIN PRN 03/04/17 13:45 03/04/17 20:00 Neostigmine Methylsulfate (Bloxiverz) 10 mg STK-MED ONCE 03/04/17 14:26 03/04/17 14:27 DC Nicotine (Nicoderm Cq 21mg) 1 patch DAILY 03/04/17 09:00 Ondansetron HCl (Zofran) 4 mg STK-MED ONCE 03/04/17 13:50 03/04/17 13:51 DC Oxycodone/ Acetaminophen (Percocet 5/325) 2 tab PRN Q4HRS PRN 03/04/17 14:30 Prochlorperazine Edisylate (Compazine) 10 mg STK-MED ONCE 03/04/17 14:49 03/04/17 14:50 DC Propofol 20 ml @ As Directed STK-MED ONCE 03/04/17 14:23 03/04/17 14:24 DC Ringer's Solution 1,000 ml @ 30 mls/hr Q24H 03/04/17 13:39 03/05/17 01:38 03/04/17 13:39 30 MLS/HR Rocuronium [place] (Zemuron) 50 mg STK-MED ONCE 03/04/17 13:50 03/04/17 13:51 DC Sodium Chloride 1,000 ml @ 125 mls/hr 1X ONCE 03/03/17 23:15 03/04/17 07:14 DC 03/04/17 02:31 125 MLS/HR Succinylcholine Chloride (Anectine) 200 mg STK-MED ONCE 03/04/17 13:51 03/04/17 13:52 DC Vancomycin HCl (Vanco Per Pharmacy) 1 each DAILY 03/04/17 09:00 UNV Vancomycin HCl 1.5 gm/Dextrose 500 ml @ 333.333 mls/hr Q8H 03/04/17 15:00 Vancomycin HCl 1.75 gm/Dextrose 500 ml @ 250 mls/hr Q8H 03/04/17 07:00 03/04/17 12:03 DC 03/04/17 06:12 250 MLS/HR Vancomycin HCl 2 gm/Dextrose 500 ml @ 250 mls/hr 1X ONCE 03/03/17 22:30 03/04/17 00:29 DC 03/03/17 22:49 250 MLS/HR Allergies Allergies Allergies Coded Allergies Type Severity Reaction Last Updated Verified No Known Drug Allergies 02/10/14 No ROS Review of System CONSTITUTIONAL: No fever or chills EYES: No recent changes SKIN: No rash or itching CARDIOVASCULAR: No chest pain, syncope, palpitations, or edema RESPIRATORY: No SOB or cough GASTROINTESTINAL: No nausea, vomiting or abdominal pain NEUROLOGICAL: No headaches or weakness ENDOCRINE: No cold or heat intolerance GENITOURINARY: No urgency or frequency of urination MUSCULOSKELETAL: No back pain or joint pain LYMPHATICS: No enlarged lymph nodes PSYCHIATRIC: No anxiety or depression Physical Exam Physical Exam GEN.: No apparent distress. Alert and oriented. HEENT: Head is normocephalic, atraumatic NECK: Supple. LUNGS: Clear to auscultation. HEART: RRR, S1, S2 present. Peripheral pulses intact ABDOMEN: Soft, nontender. Positive bowel sounds. EXTREMITIES: Without any cyanosis. NEUROLOGIC: Normal speech, normal tone PSYCHIATRIC: Normal affect, normal mood. SKIN: No ulcerations. rectum area pain, tenderness. Vitals Vitals Vital Signs Date Time Temp Pulse Resp B/P (MAP) Pulse Ox O2 Delivery O2 Flow Rate FiO2 03/04/17 14:57 97 16 101/54 95 Room Air 03/04/17 14:42 100.2 10 100.2 Labs Labs Laboratory Tests Test 03/03/17 22:30 03/04/17 04:20 White Blood Count 16.0 x10^3/uL (4.0-11.0) 13.6 x10^3/uL (4.0-11.0) Red Blood Count 4.76 x10^6/uL (4.30-5.70) 4.80 x10^6/uL (4.30-5.70) Hemoglobin 15.3 g/dL (13.0-17.5) 15.0 g/dL (13.0-17.5) Hematocrit 45.2 % (39.0-53.0) 45.5 % (39.0-53.0) Mean Corpuscular Volume 95 fL (79-100) 95 fL (79-100) Mean Corpuscular Hemoglobin 32 pg (25-35) 31 pg (25-35) Mean Corpuscular Hemoglobin Concent 34 g/dL (31-37) 33 g/dL (31-37) Red Cell Distribution Width 13.0 % (11.5-14.5) 12.9 % (11.5-14.5) Platelet Count 259 x10^3/uL (140-400) 229 x10^3/uL (140-400) Neutrophils (%) (Auto) 76 % (31-73) 70 % (31-73) Lymphocytes (%) (Auto) 14 % (24-48) 20 % (24-48) Monocytes (%) (Auto) 8 % (0-9) 8 % (0-9) Eosinophils (%) (Auto) 2 % (0-3) 2 % (0-3) Basophils (%) (Auto) 1 % (0-3) 1 % (0-3) Neutrophils # (Auto) 12.2 x10^3uL (1.8-7.7) 9.5 x10^3uL (1.8-7.7) Lymphocytes # (Auto) 2.3 x10^3/uL (1.0-4.8) 2.7 x10^3/uL (1.0-4.8) Monocytes # (Auto) 1.2 x10^3/uL (0.0-1.1) 1.1 x10^3/uL (0.0-1.1) Eosinophils # (Auto) 0.2 x10^3/uL (0.0-0.7) 0.3 x10^3/uL (0.0-0.7) Basophils # (Auto) 0.1 x10^3/uL (0.0-0.2) 0.1 x10^3/uL (0.0-0.2) Erythrocyte Sedimentation Rate 8 (0-15) Prothrombin Time 12.0 SEC (11.7-14.0) Prothromb Time International Ratio 0.9 (0.8-1.1) Activated Partial Thromboplast Time 32 SEC (24-38) Sodium Level 141 mmol/L (136-145) 141 mmol/L (136-145) Potassium Level 4.2 mmol/L (3.5-5.1) 3.7 mmol/L (3.5-5.1) Chloride Level 103 mmol/L (98-107) 107 mmol/L (98-107) Carbon Dioxide Level 28 mmol/L (21-32) 25 mmol/L (21-32) Anion Gap 10 (6-14) 9 (6-14) Blood Urea Nitrogen 17 mg/dL (8-26) 15 mg/dL (8-26) Creatinine 0.8 mg/dL (0.7-1.3) 0.8 mg/dL (0.7-1.3) Estimated GFR (Cockcroft-Gault) 112.8 112.8 BUN/Creatinine Ratio 21 (6-20) Glucose Level 99 mg/dL (70-99) 91 mg/dL (70-99) Lactic Acid Level 1.2 mmol/L (0.4-2.0) Calcium Level 9.2 mg/dL (8.5-10.1) 8.6 mg/dL (8.5-10.1) Total Bilirubin 0.3 mg/dL (0.2-1.0) Aspartate Amino Transf (AST/SGOT) 36 U/L (15-37) Alanine Aminotransferase (ALT/SGPT) 84 U/L (16-63) Alkaline Phosphatase 94 U/L (46-116) C-Reactive Protein, Quantitative 32.2 mg/L (0-3.3) Total Protein 6.8 g/dL (6.4-8.2) Albumin 3.8 g/dL (3.4-5.0) Albumin/Globulin Ratio 1.3 (1.0-1.7) Procalcitonin < 0.10 ng/mL (0.00-0.10) Laboratory Tests Test 03/03/17 22:30 03/04/17 04:20 White Blood Count 16.0 x10^3/uL (4.0-11.0) 13.6 x10^3/uL (4.0-11.0) Red Blood Count 4.76 x10^6/uL (4.30-5.70) 4.80 x10^6/uL (4.30-5.70) Hemoglobin 15.3 g/dL (13.0-17.5) 15.0 g/dL (13.0-17.5) Hematocrit 45.2 % (39.0-53.0) 45.5 % (39.0-53.0) Mean Corpuscular Volume 95 fL (79-100) 95 fL (79-100) Mean Corpuscular Hemoglobin 32 pg (25-35) 31 pg (25-35) Mean Corpuscular Hemoglobin Concent 34 g/dL (31-37) 33 g/dL (31-37) Red Cell Distribution Width 13.0 % (11.5-14.5) 12.9 % (11.5-14.5) Platelet Count 259 x10^3/uL (140-400) 229 x10^3/uL (140-400) Neutrophils (%) (Auto) 76 % (31-73) 70 % (31-73) Lymphocytes (%) (Auto) 14 % (24-48) 20 % (24-48) Monocytes (%) (Auto) 8 % (0-9) 8 % (0-9) Eosinophils (%) (Auto) 2 % (0-3) 2 % (0-3) Basophils (%) (Auto) 1 % (0-3) 1 % (0-3) Neutrophils # (Auto) 12.2 x10^3uL (1.8-7.7) 9.5 x10^3uL (1.8-7.7) Lymphocytes # (Auto) 2.3 x10^3/uL (1.0-4.8) 2.7 x10^3/uL (1.0-4.8) Monocytes # (Auto) 1.2 x10^3/uL (0.0-1.1) 1.1 x10^3/uL (0.0-1.1) Eosinophils # (Auto) 0.2 x10^3/uL (0.0-0.7) 0.3 x10^3/uL (0.0-0.7) Basophils # (Auto) 0.1 x10^3/uL (0.0-0.2) 0.1 x10^3/uL (0.0-0.2) Erythrocyte Sedimentation Rate 8 (0-15) Prothrombin Time 12.0 SEC (11.7-14.0) Prothromb Time International Ratio 0.9 (0.8-1.1) Activated Partial Thromboplast Time 32 SEC (24-38) Sodium Level 141 mmol/L (136-145) 141 mmol/L (136-145) Potassium Level 4.2 mmol/L (3.5-5.1) 3.7 mmol/L (3.5-5.1) Chloride Level 103 mmol/L (98-107) 107 mmol/L (98-107) Carbon Dioxide Level 28 mmol/L (21-32) 25 mmol/L (21-32) Anion Gap 10 (6-14) 9 (6-14) Blood Urea Nitrogen 17 mg/dL (8-26) 15 mg/dL (8-26) Creatinine 0.8 mg/dL (0.7-1.3) 0.8 mg/dL (0.7-1.3) Estimated GFR (Cockcroft-Gault) 112.8 112.8 BUN/Creatinine Ratio 21 (6-20) Glucose Level 99 mg/dL (70-99) 91 mg/dL (70-99) Lactic Acid Level 1.2 mmol/L (0.4-2.0) Calcium Level 9.2 mg/dL (8.5-10.1) 8.6 mg/dL (8.5-10.1) Total Bilirubin 0.3 mg/dL (0.2-1.0) Aspartate Amino Transf (AST/SGOT) 36 U/L (15-37) Alanine Aminotransferase (ALT/SGPT) 84 U/L (16-63) Alkaline Phosphatase 94 U/L (46-116) C-Reactive Protein, Quantitative 32.2 mg/L (0-3.3) Total Protein 6.8 g/dL (6.4-8.2) Albumin 3.8 g/dL (3.4-5.0) Albumin/Globulin Ratio 1.3 (1.0-1.7) Procalcitonin < 0.10 ng/mL (0.00-0.10) VTE Prophylaxis Ordered VTE Prophylaxis Devices: Yes VTE Pharmacological Prophylaxi: Yes Assessment/Plan Assessment/Plan pilonidal cyst with abcess, s/p i and d on 03/04 tobaccoism sepsis plan: I AND D with sx today cont sergio mccullough wound care fu with wound cx pain control LEISA SUNG MD Mar 04, 2017 15:21
[2017-03-04] MEDS ORDERED: ACETAMINOPHEN 325 MG TABLET. PO PRN (15:30)
[2017-03-04] MEDS ORDERED: hydrALAZINE 20 MG/ML VIAL. IVP PRN (15:30)
[2017-03-04] MEDS ORDERED: DOCUSATE SODIUM 100 MG CAPSULE. PO PRN (15:30)
[2017-03-04] MEDS ORDERED: traMADol 50 MG TABLET PO PRN (15:30)
[2017-03-04] MEDS ORDERED: PIP/TAZO PER PHARMACY MC PRN (15:30)
[2017-03-04] MEDS: PIPERACILLIN/TAZO IV Push 3.375 GM VIAL. IVP SCH (16:01)
[2017-03-04] MEDS: VANCOMYCIN 1.5 GM in IV DEXTROSE 5% 500 ML IV SCH ×2 (16:05→23:00)
[2017-03-04] MEDS ORDERED: PIPERACILLIN/TAZOBACTAM 4.5 GM in IV DEXTROSE 5% 100 ML IV SCH (18:00)
[2017-03-04] MEDS: oxyCODONE/APAP 5/325 1 TAB TABLET PO PRN (20:37)
[2017-03-05] MEDS: PIPERACILLIN/TAZO IV Push 3.375 GM VIAL. IVP SCH ×5 (00:25→23:43)
[2017-03-05 03:00] VITALS: BP 130/59
[2017-03-05 05:30] LABS: BASO # 0.1 x10^3/uL (0.0-0.2); BASO % 1 % (0-3); EOS % 1 % (0-3); HEMATOCRIT 42.8 % (39.0-53.0); HEMOGLOBIN 14.4 g/dL (13.0-17.5); LYMPH # 2.1 x10^3/uL (1.0-4.8); LYMPH % 11 % (24-48); MEAN CORPUSCULAR HEMOGLOBIN 32 pg (25-35); MEAN CORPUSCULAR HGB CONC 34 g/dL (31-37); MEAN CORPUSCULAR VOLUME 95 fL (79-100); MONO % 6 % (0-9); NEUT % 82 % (31-73); PLATELET COUNT 238 x10^3/uL (140-400); RED BLOOD COUNT 4.49 x10^6/uL (4.30-5.70); RED CELL DISTRIBUTION WIDTH 13.1 % (11.5-14.5); WHITE BLOOD COUNT 19.5 x10^3/uL (4.0-11.0)
[2017-03-05 05:50] LABS: CALCIUM 8.7 mg/dL (8.5-10.1); CREATININE 0.9 mg/dL (0.7-1.3); GFR 98.4; POTASSIUM 3.7 mmol/L (3.5-5.1)
[2017-03-05 06:27] LABS: PLT ESTIMATE ADEQUATE (ADEQUATE)
[2017-03-05 07:58] VITALS: BP 126/80
--- NOTE | 2017-03-05 08:38 | PDOC ---
SURGICAL PROGRESS NOTE Subjective some pain asking about discharge Vital Signs Vital Signs Date Time Temp Pulse Resp B/P (MAP) Pulse Ox O2 Delivery O2 Flow Rate FiO2 03/05/17 07:58 98.4 84 16 126/80 (95) 94 Room Air 98.4 03/04/17 20:37 2.0 I&O Intake and Output 03/05/17 06:59 Intake Total 400 ml Output Total 2200 ml Balance -1800 ml Intake Oral 400 ml Output Urine Total 2200 ml # Voids 2 # Bowel Movements 1 General: Alert, Oriented X3, Cooperative, No acute distress Skin: Other (wound clean, packed ) Labs Laboratory Tests Test 03/03/17 22:30 03/04/17 04:20 03/04/17 22:22 03/05/17 03:00 White Blood Count 16.0 x10^3/uL (4.0-11.0) 13.6 x10^3/uL (4.0-11.0) Red Blood Count 4.76 x10^6/uL (4.30-5.70) 4.80 x10^6/uL (4.30-5.70) Hemoglobin 15.3 g/dL (13.0-17.5) 15.0 g/dL (13.0-17.5) Hematocrit 45.2 % (39.0-53.0) 45.5 % (39.0-53.0) Mean Corpuscular Volume 95 fL (79-100) 95 fL (79-100) Mean Corpuscular Hemoglobin 32 pg (25-35) 31 pg (25-35) Mean Corpuscular Hemoglobin Concent 34 g/dL (31-37) 33 g/dL (31-37) Red Cell Distribution Width 13.0 % (11.5-14.5) 12.9 % (11.5-14.5) Platelet Count 259 x10^3/uL (140-400) 229 x10^3/uL (140-400) Neutrophils (%) (Auto) 76 % (31-73) 70 % (31-73) Lymphocytes (%) (Auto) 14 % (24-48) 20 % (24-48) Monocytes (%) (Auto) 8 % (0-9) 8 % (0-9) Eosinophils (%) (Auto) 2 % (0-3) 2 % (0-3) Basophils (%) (Auto) 1 % (0-3) 1 % (0-3) Neutrophils # (Auto) 12.2 x10^3uL (1.8-7.7) 9.5 x10^3uL (1.8-7.7) Lymphocytes # (Auto) 2.3 x10^3/uL (1.0-4.8) 2.7 x10^3/uL (1.0-4.8) Monocytes # (Auto) 1.2 x10^3/uL (0.0-1.1) 1.1 x10^3/uL (0.0-1.1) Eosinophils # (Auto) 0.2 x10^3/uL (0.0-0.7) 0.3 x10^3/uL (0.0-0.7) Basophils # (Auto) 0.1 x10^3/uL (0.0-0.2) 0.1 x10^3/uL (0.0-0.2) Erythrocyte Sedimentation Rate 8 (0-15) Prothrombin Time 12.0 SEC (11.7-14.0) Prothromb Time International Ratio 0.9 (0.8-1.1) Activated Partial Thromboplast Time 32 SEC (24-38) Sodium Level 141 mmol/L (136-145) 141 mmol/L (136-145) 141 mmol/L (136-145) Potassium Level 4.2 mmol/L (3.5-5.1) 3.7 mmol/L (3.5-5.1) 3.7 mmol/L (3.5-5.1) Chloride Level 103 mmol/L (98-107) 107 mmol/L (98-107) 102 mmol/L (98-107) Carbon Dioxide Level 28 mmol/L (21-32) 25 mmol/L (21-32) 27 mmol/L (21-32) Anion Gap 10 (6-14) 9 (6-14) 12 (6-14) Blood Urea Nitrogen 17 mg/dL (8-26) 15 mg/dL (8-26) 14 mg/dL (8-26) Creatinine 0.8 mg/dL (0.7-1.3) 0.8 mg/dL (0.7-1.3) 0.9 mg/dL (0.7-1.3) Estimated GFR (Cockcroft-Gault) 112.8 112.8 98.4 BUN/Creatinine Ratio 21 (6-20) Glucose Level 99 mg/dL (70-99) 91 mg/dL (70-99) 44 mg/dL (70-99) Lactic Acid Level 1.2 mmol/L (0.4-2.0) Calcium Level 9.2 mg/dL (8.5-10.1) 8.6 mg/dL (8.5-10.1) 8.7 mg/dL (8.5-10.1) Total Bilirubin 0.3 mg/dL (0.2-1.0) Aspartate Amino Transf (AST/SGOT) 36 U/L (15-37) Alanine Aminotransferase (ALT/SGPT) 84 U/L (16-63) Alkaline Phosphatase 94 U/L (46-116) C-Reactive Protein, Quantitative 32.2 mg/L (0-3.3) Total Protein 6.8 g/dL (6.4-8.2) Albumin 3.8 g/dL (3.4-5.0) Albumin/Globulin Ratio 1.3 (1.0-1.7) Procalcitonin < 0.10 ng/mL (0.00-0.10) Vancomycin Level Trough 29.1 mcg/mL (10.0-20.0) Vancomycin Last Dose Date [id number] Vancomycin Last Dose Time 1500 Test 03/05/17 05:00 White Blood Count 19.5 x10^3/uL (4.0-11.0) Red Blood Count 4.49 x10^6/uL (4.30-5.70) Hemoglobin 14.4 g/dL (13.0-17.5) Hematocrit 42.8 % (39.0-53.0) Mean Corpuscular Volume 95 fL (79-100) Mean Corpuscular Hemoglobin 32 pg (25-35) Mean Corpuscular Hemoglobin Concent 34 g/dL (31-37) Red Cell Distribution Width 13.1 % (11.5-14.5) Platelet Count 238 x10^3/uL (140-400) Neutrophils (%) (Auto) 82 % (31-73) Lymphocytes (%) (Auto) 11 % (24-48) Monocytes (%) (Auto) 6 % (0-9) Eosinophils (%) (Auto) 1 % (0-3) Basophils (%) (Auto) 1 % (0-3) Neutrophils # (Auto) 16.0 x10^3uL (1.8-7.7) Lymphocytes # (Auto) 2.1 x10^3/uL (1.0-4.8) Monocytes # (Auto) 1.1 x10^3/uL (0.0-1.1) Eosinophils # (Auto) 0.1 x10^3/uL (0.0-0.7) Basophils # (Auto) 0.1 x10^3/uL (0.0-0.2) Segmented Neutrophils % 88 % (35-66) Lymphocytes % 4 % (24-48) Atypical Lymphocytes % (Manual) 1 % (0-0) Monocytes % 7 % (0-10) Platelet Estimate Adequate (ADEQUATE) Laboratory Tests Test 03/04/17 22:22 03/05/17 03:00 03/05/17 05:00 Vancomycin Level Trough 29.1 mcg/mL (10.0-20.0) Vancomycin Last Dose Date [id number] Vancomycin Last Dose Time 1500 Sodium Level 141 mmol/L (136-145) Potassium Level 3.7 mmol/L (3.5-5.1) Chloride Level 102 mmol/L (98-107) Carbon Dioxide Level 27 mmol/L (21-32) Anion Gap 12 (6-14) Blood Urea Nitrogen 14 mg/dL (8-26) Creatinine 0.9 mg/dL (0.7-1.3) Estimated GFR (Cockcroft-Gault) 98.4 Glucose Level 44 mg/dL (70-99) Calcium Level 8.7 mg/dL (8.5-10.1) White Blood Count 19.5 x10^3/uL (4.0-11.0) Red Blood Count 4.49 x10^6/uL (4.30-5.70) Hemoglobin 14.4 g/dL (13.0-17.5) Hematocrit 42.8 % (39.0-53.0) Mean Corpuscular Volume 95 fL (79-100) Mean Corpuscular Hemoglobin 32 pg (25-35) Mean Corpuscular Hemoglobin Concent 34 g/dL (31-37) Red Cell Distribution Width 13.1 % (11.5-14.5) Platelet Count 238 x10^3/uL (140-400) Neutrophils (%) (Auto) 82 % (31-73) Lymphocytes (%) (Auto) 11 % (24-48) Monocytes (%) (Auto) 6 % (0-9) Eosinophils (%) (Auto) 1 % (0-3) Basophils (%) (Auto) 1 % (0-3) Neutrophils # (Auto) 16.0 x10^3uL (1.8-7.7) Lymphocytes # (Auto) 2.1 x10^3/uL (1.0-4.8) Monocytes # (Auto) 1.1 x10^3/uL (0.0-1.1) Eosinophils # (Auto) 0.1 x10^3/uL (0.0-0.7) Basophils # (Auto) 0.1 x10^3/uL (0.0-0.2) Segmented Neutrophils % 88 % (35-66) Lymphocytes % 4 % (24-48) Atypical Lymphocytes % (Manual) 1 % (0-0) Monocytes % 7 % (0-10) Platelet Estimate Adequate (ADEQUATE) Problem List Problems Medical Problems: (1) Cellulitis and abscess of buttock Status: Acute (2) Pilonidal abscess Status: Acute (3) Pilonidal cyst Status: Acute (4) Smoking addiction Status: Acute Assessment/Plan s/p I&D pilonidal cyst wound care, abx Problems: SUNG MARIA APRN Mar 05, 2017 08:38
[2017-03-05] MEDS: NICOTINE 21MG PATCH. TD SCH (08:40)
[2017-03-05] MEDS: oxyCODONE/APAP 5/325 1 TAB TABLET PO PRN ×4 (08:40→21:20)
[2017-03-05] MEDS: ENOXAPARIN 40 MG/0.4 ML SYRINGE. SQ SCH (08:41)
[2017-03-05 11:10] VITALS: BP 149/66
[2017-03-05] MEDS: VANCOMYCIN PER PHARMACY MC PRN ×2 (12:15→12:16)
[2017-03-05 15:16] VITALS: BP 133/79
[2017-03-05] MEDS: VANCOMYCIN 1.5 GM in IV DEXTROSE 5% 500 ML IV SCH (17:21)
--- NOTE | 2017-03-05 18:08 | PDOC ---
PROGRESS NOTES Chief Complaint Chief Complaint pilonidal cyst with abcess, s/p i and d on 03/04 tobaccoism sepsis History of Present Illness History of Present Illness I AND D with sx POD #1 cont IV abx wound care fu with wound cx pain control Vitals Vitals Vital Signs Date Time Temp Pulse Resp B/P (MAP) Pulse Ox O2 Delivery O2 Flow Rate FiO2 03/05/17 17:20 Room Air 03/05/17 15:16 98.3 85 18 133/79 (97) 96 98.3 03/04/17 20:37 2.0 Physical Exam General: Alert, Oriented X3, Cooperative, No acute distress Heart: Regular rate, Normal S1, Normal S2, No murmurs Abdomen: Normal bowel sounds, Soft, No tenderness, No hepatosplenomegaly, No masses Extremities: No clubbing, No cyanosis, No edema, Normal pulses, No tenderness/ swelling Skin: Other (wound clean, packed ) Labs LABS Laboratory Tests Test 03/04/17 22:22 03/05/17 03:00 03/05/17 05:00 Vancomycin Level Trough 29.1 mcg/mL (10.0-20.0) Vancomycin Last Dose Date Vancomycin Last Dose Time 1500 Sodium Level 141 mmol/L (136-145) Potassium Level 3.7 mmol/L (3.5-5.1) Chloride Level 102 mmol/L (98-107) Carbon Dioxide Level 27 mmol/L (21-32) Anion Gap 12 (6-14) Blood Urea Nitrogen 14 mg/dL (8-26) Creatinine 0.9 mg/dL (0.7-1.3) Estimated GFR (Cockcroft-Gault) 98.4 Glucose Level 44 mg/dL (70-99) Calcium Level 8.7 mg/dL (8.5-10.1) White Blood Count 19.5 x10^3/uL (4.0-11.0) Red Blood Count 4.49 x10^6/uL (4.30-5.70) Hemoglobin 14.4 g/dL (13.0-17.5) Hematocrit 42.8 % (39.0-53.0) Mean Corpuscular Volume 95 fL (79-100) Mean Corpuscular Hemoglobin 32 pg (25-35) Mean Corpuscular Hemoglobin Concent 34 g/dL (31-37) Red Cell Distribution Width 13.1 % (11.5-14.5) Platelet Count 238 x10^3/uL (140-400) Neutrophils (%) (Auto) 82 % (31-73) Lymphocytes (%) (Auto) 11 % (24-48) Monocytes (%) (Auto) 6 % (0-9) Eosinophils (%) (Auto) 1 % (0-3) Basophils (%) (Auto) 1 % (0-3) Neutrophils # (Auto) 16.0 x10^3uL (1.8-7.7) Lymphocytes # (Auto) 2.1 x10^3/uL (1.0-4.8) Monocytes # (Auto) 1.1 x10^3/uL (0.0-1.1) Eosinophils # (Auto) 0.1 x10^3/uL (0.0-0.7) Basophils # (Auto) 0.1 x10^3/uL (0.0-0.2) Segmented Neutrophils % 88 % (35-66) Lymphocytes % 4 % (24-48) Atypical Lymphocytes % (Manual) 1 % (0-0) Monocytes % 7 % (0-10) Platelet Estimate Adequate (ADEQUATE) Assessment and Plan Assessmemt and Plan try to DC in AM Problems Medical Problems: (1) Cellulitis and abscess of buttock Status: Acute (2) Pilonidal abscess Status: Acute (3) Pilonidal cyst Status: Acute (4) Smoking addiction Status: Acute Problems: Comment Review of Relevant I have reviewed the following items krystal (where applicable) has been applied. Labs Laboratory Tests Test 03/03/17 22:30 03/04/17 04:20 03/04/17 22:22 03/05/17 03:00 White Blood Count 16.0 x10^3/uL (4.0-11.0) 13.6 x10^3/uL (4.0-11.0) Red Blood Count 4.76 x10^6/uL (4.30-5.70) 4.80 x10^6/uL (4.30-5.70) Hemoglobin 15.3 g/dL (13.0-17.5) 15.0 g/dL (13.0-17.5) Hematocrit 45.2 % (39.0-53.0) 45.5 % (39.0-53.0) Mean Corpuscular Volume 95 fL (79-100) 95 fL (79-100) Mean Corpuscular Hemoglobin 32 pg (25-35) 31 pg (25-35) Mean Corpuscular Hemoglobin Concent 34 g/dL (31-37) 33 g/dL (31-37) Red Cell Distribution Width 13.0 % (11.5-14.5) 12.9 % (11.5-14.5) Platelet Count 259 x10^3/uL (140-400) 229 x10^3/uL (140-400) Neutrophils (%) (Auto) 76 % (31-73) 70 % (31-73) Lymphocytes (%) (Auto) 14 % (24-48) 20 % (24-48) Monocytes (%) (Auto) 8 % (0-9) 8 % (0-9) Eosinophils (%) (Auto) 2 % (0-3) 2 % (0-3) Basophils (%) (Auto) 1 % (0-3) 1 % (0-3) Neutrophils # (Auto) 12.2 x10^3uL (1.8-7.7) 9.5 x10^3uL (1.8-7.7) Lymphocytes # (Auto) 2.3 x10^3/uL (1.0-4.8) 2.7 x10^3/uL (1.0-4.8) Monocytes # (Auto) 1.2 x10^3/uL (0.0-1.1) 1.1 x10^3/uL (0.0-1.1) Eosinophils # (Auto) 0.2 x10^3/uL (0.0-0.7) 0.3 x10^3/uL (0.0-0.7) Basophils # (Auto) 0.1 x10^3/uL (0.0-0.2) 0.1 x10^3/uL (0.0-0.2) Erythrocyte Sedimentation Rate 8 (0-15) Prothrombin Time 12.0 SEC (11.7-14.0) Prothromb Time International Ratio 0.9 (0.8-1.1) Activated Partial Thromboplast Time 32 SEC (24-38) Sodium Level 141 mmol/L (136-145) 141 mmol/L (136-145) 141 mmol/L (136-145) Potassium Level 4.2 mmol/L (3.5-5.1) 3.7 mmol/L (3.5-5.1) 3.7 mmol/L (3.5-5.1) Chloride Level 103 mmol/L (98-107) 107 mmol/L (98-107) 102 mmol/L (98-107) Carbon Dioxide Level 28 mmol/L (21-32) 25 mmol/L (21-32) 27 mmol/L (21-32) Anion Gap 10 (6-14) 9 (6-14) 12 (6-14) Blood Urea Nitrogen 17 mg/dL (8-26) 15 mg/dL (8-26) 14 mg/dL (8-26) Creatinine 0.8 mg/dL (0.7-1.3) 0.8 mg/dL (0.7-1.3) 0.9 mg/dL (0.7-1.3) Estimated GFR (Cockcroft-Gault) 112.8 112.8 98.4 BUN/Creatinine Ratio 21 (6-20) Glucose Level 99 mg/dL (70-99) 91 mg/dL (70-99) 44 mg/dL (70-99) Lactic Acid Level 1.2 mmol/L (0.4-2.0) Calcium Level 9.2 mg/dL (8.5-10.1) 8.6 mg/dL (8.5-10.1) 8.7 mg/dL (8.5-10.1) Total Bilirubin 0.3 mg/dL (0.2-1.0) Aspartate Amino Transf (AST/SGOT) 36 U/L (15-37) Alanine Aminotransferase (ALT/SGPT) 84 U/L (16-63) Alkaline Phosphatase 94 U/L (46-116) C-Reactive Protein, Quantitative 32.2 mg/L (0-3.3) Total Protein 6.8 g/dL (6.4-8.2) Albumin 3.8 g/dL (3.4-5.0) Albumin/Globulin Ratio 1.3 (1.0-1.7) Procalcitonin < 0.10 ng/mL (0.00-0.10) Vancomycin Level Trough 29.1 mcg/mL (10.0-20.0) Vancomycin Last Dose Date Vancomycin Last Dose Time 1500 Test 03/05/17 05:00 White Blood Count 19.5 x10^3/uL (4.0-11.0) Red Blood Count 4.49 x10^6/uL (4.30-5.70) Hemoglobin 14.4 g/dL (13.0-17.5) Hematocrit 42.8 % (39.0-53.0) Mean Corpuscular Volume 95 fL (79-100) Mean Corpuscular Hemoglobin 32 pg (25-35) Mean Corpuscular Hemoglobin Concent 34 g/dL (31-37) Red Cell Distribution Width 13.1 % (11.5-14.5) Platelet Count 238 x10^3/uL (140-400) Neutrophils (%) (Auto) 82 % (31-73) Lymphocytes (%) (Auto) 11 % (24-48) Monocytes (%) (Auto) 6 % (0-9) Eosinophils (%) (Auto) 1 % (0-3) Basophils (%) (Auto) 1 % (0-3) Neutrophils # (Auto) 16.0 x10^3uL (1.8-7.7) Lymphocytes # (Auto) 2.1 x10^3/uL (1.0-4.8) Monocytes # (Auto) 1.1 x10^3/uL (0.0-1.1) Eosinophils # (Auto) 0.1 x10^3/uL (0.0-0.7) Basophils # (Auto) 0.1 x10^3/uL (0.0-0.2) Segmented Neutrophils % 88 % (35-66) Lymphocytes % 4 % (24-48) Atypical Lymphocytes % (Manual) 1 % (0-0) Monocytes % 7 % (0-10) Platelet Estimate Adequate (ADEQUATE) Laboratory Tests Test 03/04/17 22:22 03/05/17 03:00 03/05/17 05:00 Vancomycin Level Trough 29.1 mcg/mL (10.0-20.0) Vancomycin Last Dose Date Vancomycin Last Dose Time 1500 Sodium Level 141 mmol/L (136-145) Potassium Level 3.7 mmol/L (3.5-5.1) Chloride Level 102 mmol/L (98-107) Carbon Dioxide Level 27 mmol/L (21-32) Anion Gap 12 (6-14) Blood Urea Nitrogen 14 mg/dL (8-26) Creatinine 0.9 mg/dL (0.7-1.3) Estimated GFR (Cockcroft-Gault) 98.4 Glucose Level 44 mg/dL (70-99) Calcium Level 8.7 mg/dL (8.5-10.1) White Blood Count 19.5 x10^3/uL (4.0-11.0) Red Blood Count 4.49 x10^6/uL (4.30-5.70) Hemoglobin 14.4 g/dL (13.0-17.5) Hematocrit 42.8 % (39.0-53.0) Mean Corpuscular Volume 95 fL (79-100) Mean Corpuscular Hemoglobin 32 pg (25-35) Mean Corpuscular Hemoglobin Concent 34 g/dL (31-37) Red Cell Distribution Width 13.1 % (11.5-14.5) Platelet Count 238 x10^3/uL (140-400) Neutrophils (%) (Auto) 82 % (31-73) Lymphocytes (%) (Auto) 11 % (24-48) Monocytes (%) (Auto) 6 % (0-9) Eosinophils (%) (Auto) 1 % (0-3) Basophils (%) (Auto) 1 % (0-3) Neutrophils # (Auto) 16.0 x10^3uL (1.8-7.7) Lymphocytes # (Auto) 2.1 x10^3/uL (1.0-4.8) Monocytes # (Auto) 1.1 x10^3/uL (0.0-1.1) Eosinophils # (Auto) 0.1 x10^3/uL (0.0-0.7) Basophils # (Auto) 0.1 x10^3/uL (0.0-0.2) Segmented Neutrophils % 88 % (35-66) Lymphocytes % 4 % (24-48) Atypical Lymphocytes % (Manual) 1 % (0-0) Monocytes % 7 % (0-10) Platelet Estimate Adequate (ADEQUATE) Microbiology 03/03/17 Blood Culture - Preliminary, Resulted NO GROWTH AFTER 1 DAY Medications Current Medications Sodium Chloride 1,000 ml @ 3,390 mls/hr Q18M IV Last administered on 22:48; Start 03/03/17 at 22:30; Stop 03/03/17 at 23:29; Status DC Sodium Chloride 500 ml @ 1,000 mls/hr PRN Q30MIN PRN IV SEE COMMENTS; Start 03/03/17 at 22:00 Vancomycin HCl (Vanco Per Pharmacy) 1 each PRN DAILY PRN MC SEE COMMENTS Last administered on 03/05/17 12:16; Start 03/03/17 at 22:00 Acetaminophen (Tylenol) 1,000 mg 1X ONCE PO Last administered on 03/03/17 22 :49; Start 03/03/17 at 22:30; Stop 03/03/17 at 22:31; Status DC Vancomycin HCl 2 gm/Dextrose 500 ml @ 250 mls/hr 1X ONCE IV Last administered on 03/03/17 22:49; Start 03/03/17 at 22:30; Stop 03/04/17 at 00 :29; Status DC Ondansetron HCl (Zofran) 4 mg PRN Q8HRS PRN IV NAUSEA/VOMITING; Start at 23:15; Stop 03/04/17 at 23:15; Status DC Morphine Sulfate 2 mg PRN Q2HR PRN IV PAIN Last administered on 03/04/17 16: 06; Start 03/03/17 at 23:15; Stop 03/04/17 at 23:15; Status DC Acetaminophen (Tylenol) 650 mg PRN Q4HRS PRN PO FEVER; Start 03/03/17 at 23:15 ; Stop 03/04/17 at 23:15; Status DC Ibuprofen (Motrin) 800 mg PRN Q8HRS PRN PO FEVER Last administered on 20:36; Start 03/03/17 at 23:15 Sodium Chloride 1,000 ml @ 125 mls/hr 1X ONCE IV Last administered on 02:31; Start 03/03/17 at 23:15; Stop 03/04/17 at 07:14; Status DC Vancomycin HCl (Vanco Per Pharmacy) 1 each DAILY MC ; Start 03/04/17 at 09:00; Status UNV Nicotine (Nicoderm Cq 21mg) 1 patch DAILY TD ; Start 03/04/17 at 09:00 Iohexol (Omnipaque 300 Mg/ml) 75 ml 1X ONCE IV Last administered on 23:26; Start 03/03/17 at 23:15; Stop 03/03/17 at 23:16; Status DC Info (Do NOT chart on this entry -- for MONITORING) 1 each PRN DAILY PRN MC SEE COMMENTS; Start 03/03/17 at 23:30; Stop 03/05/17 at 23:29 Vancomycin HCl 1.75 gm/Dextrose 500 ml @ 250 mls/hr Q8H IV Last administered on 03/04/17 06:12; Start 03/04/17 at 07:00; Stop 03/04/17 at 12:03; Status DC Vancomycin HCl 1 each 1X ONCE MC Last administered on 03/04/17 22:30; Start 03/04/17 at 22:30; Stop 03/04/17 at 22:31; Status DC Vancomycin HCl 1.5 gm/Dextrose 500 ml @ 333.333 mls/hr Q8H IV Last administered on 03/04/17 16:05; Start 03/04/17 at 15:00; Stop 03/04/17 at 23 :00; Status DC Ondansetron HCl (Zofran) 4 mg PRN Q6HRS PRN IV NAUSEA/VOMITING; Start at 13:45; Stop 03/04/17 at 20:00; Status DC Fentanyl Citrate (Fentanyl 2ml Vial) 25 mcg PRN Q5MIN PRN IV MILD PAIN; Start 03/04/17 at 13:45; Stop 03/04/17 at 20:00; Status DC Fentanyl Citrate (Fentanyl 2ml Vial) 50 mcg PRN Q5MIN PRN IV MODERATE PAIN Last administered on 03/04/17 15:40; Start 03/04/17 at 13:45; Stop 03/04/17 at 20:00; Status DC Morphine Sulfate 1 mg PRN Q10MIN PRN IV SEVERE PAIN; Start 03/04/17 at 13:45; Stop 03/04/17 at 20:00; Status DC Ringer's Solution 1,000 ml @ 30 mls/hr Q24H IV Last administered on 11/17/ 17at 13:39; Start 03/04/17 at 13:39; Stop 03/05/17 at 01:38; Status DC Lidocaine HCl (Xylocaine-Mpf 1% Vial) 2 ml 1X PRN PRN ID IV START; Start 03/04 at 13:45; Stop 03/04/17 at 20:00; Status DC Hydromorphone HCl (Dilaudid) 0.5 mg PRN Q10MIN PRN IV SEV PAIN, Second choice; Start 03/04/17 at 13:45; Stop 03/04/17 at 20:00; Status DC Prochlorperazine Edisylate (Compazine) 5 mg PACU PRN PRN IV NAUSEA, MRX1 Last administered on 03/04/17t 15:39; Start 03/04/17 at 13:45; Stop 03/04/17 at 20 :00; Status DC Propofol 20 ml @ As Directed STK-MED ONCE IV ; Start 03/04/17 at 13:50; Stop 03/04/17 at 13:51; Status DC Lidocaine HCl (Lidocaine Pf 2% Vial) 5 ml STK-MED ONCE .ROUTE ; Start 03/04/17 at 13:50; Stop 03/04/17 at 13:51; Status DC Dexamethasone Sodium Phosphate (Decadron) 20 mg STK-MED ONCE .ROUTE ; Start at 13:50; Stop 03/04/17 at 13:51; Status DC Ondansetron HCl (Zofran) 4 mg STK-MED ONCE .ROUTE ; Start 03/04/17 at 13:50; Stop 03/04/17 at 13:51; Status DC Rocuronium [place] (Zemuron) 50 mg STK-MED ONCE .ROUTE ; Start 03/04/17 at 13: 50; Stop 03/04/17 at 13:51; Status DC Succinylcholine Chloride (Anectine) 200 mg STK-MED ONCE .ROUTE ; Start at 13:51; Stop 03/04/17 at 13:52; Status DC Fentanyl Citrate (Fentanyl 2ml Vial) 100 mcg STK-MED ONCE .ROUTE ; Start at 13:51; Stop 03/04/17 at 13:52; Status DC Ketorolac Tromethamine (Toradol For Or Only) 30 mg STK-MED ONCE INJ ; Start at 14:18; Stop 03/04/17 at 14:19; Status DC Fentanyl Citrate (Fentanyl 2ml Vial) 100 mcg STK-MED ONCE .ROUTE ; Start at 14:23; Stop 03/04/17 at 14:24; Status DC Propofol 20 ml @ As Directed STK-MED ONCE IV ; Start 03/04/17 at 14:23; Stop 03/04/17 at 14:24; Status DC Neostigmine Methylsulfate (Bloxiverz) 10 mg STK-MED ONCE .ROUTE ; Start at 14:26; Stop 03/04/17 at 14:27; Status DC Glycopyrrolate (Robinul) 1 mg STK-MED ONCE .ROUTE ; Start 03/04/17 at 14:26; Stop 03/04/17 at 14:27; Status DC Oxycodone/ Acetaminophen (Percocet 5/325) 1 tab PRN Q4HRS PRN PO PAIN Last administered on 03/05/17t 08:40; Start 03/04/17 at 14:30 Oxycodone/ Acetaminophen (Percocet 5/325) 2 tab PRN Q4HRS PRN PO PAIN Last administered on 03/05/17t 17:20; Start 03/04/17 at 14:30 Fentanyl Citrate (Fentanyl 2ml Vial) 100 mcg STK-MED ONCE .ROUTE ; Start at 14:49; Stop 03/04/17 at 14:50; Status DC Prochlorperazine Edisylate (Compazine) 10 mg STK-MED ONCE .ROUTE ; Start at 14:49; Stop 03/04/17 at 14:50; Status DC Piperacillin Sod/ Tazobactam Sod 4.5 gm/Dextrose 100 ml @ 200 mls/hr Q6HRS IV ; Start 03/04/17 at 18:00; Stop 03/04/17 at 18:00; Status DC Piperacillin Sod/ Tazobactam Sod (Zosyn Per Pharmacy) 1 each PRN DAILY PRN MC SEE COMMENTS; Start 03/04/17 at 15:30 Acetaminophen (Tylenol) 650 mg PRN Q6HRS PRN PO FEVER; Start 03/04/17 at 15:30 Ondansetron HCl (Zofran) 4 mg PRN Q6HRS PRN IV NAUSEA/VOMITING; Start at 15:30 Morphine Sulfate 2 mg PRN Q2HR PRN IV PAIN; Start 03/04/17 at 15:30 Tramadol HCl (Ultram) 50 mg PRN Q6HRS PRN PO PAIN Last administered on 11:47; Start 03/04/17 at 15:30 Hydralazine HCl (Apresoline Inj) 10 mg PRN Q4HRS PRN IVP ELEVATED BP, SEE COMMENTS; Start 03/04/17 at 15:30 Docusate Sodium (Colace) 100 mg PRN DAILY PRN PO CONSTIPATION; Start 03/04/17 at 15:30 Enoxaparin Sodium (Lovenox 40mg Syringe) 40 mg DAILY SQ Last administered on 08:41; Start 03/05/17 at 09:00 Piperacillin Sod/ Tazobactam Sod (Zosyn) 3.375 gm Q6HRS IVP Last administered on 03/05/17 12:33; Start 03/04/17 at 16:00 Vancomycin HCl 1.5 gm/Dextrose 500 ml @ 250 mls/hr Q8H IV Last administered on 03/05/17 17:21; Start 03/05/17 at 17:00 Vancomycin HCl 1 each 1X ONCE MC ; Start 03/06/17 at 08:30; Stop 03/06/17 at 08:31 Lactobacillus Rhamnosus (Culturelle) 1 cap BID PO ; Start 03/05/17 at 21:00 Active Scripts Active Omeprazole 20 Mg Tablet.dr 20 Mg PO DAILY Tylenol With Codeine #3 Tablet (Acetaminophen/Codeine Phosphate) 1 Each Tablet 1 Tab PO PRN Q6HRS PRN Zofran Odt (Ondansetron) 4 Mg Tab.rapdis 1 Tab SL Q8HRS PRN Dumont 5-325 Tablet (Acetaminophen/Hydrocodone Bitart) 1 Each Tablet 1 Tab PO PRN Q6HRS PRN Bactrim Ds Tablet (Sulfamethoxazole/Trimethoprim) 1 Each Tablet 1 Tab PO BID Vitals/I & O Vital Sign - Last 24 Hours 03/04/17 03/04/17 03/04/17 03/04/17 20:00 20:00 20:37 21:37 Temp 101.1 101.1 Pulse 89 Resp 16 20 20 B/P (MAP) 118/55 (76) Pulse Ox 98 97 97 O2 Delivery Room Air Room Air Room Air O2 Flow Rate 2.0 03/04/17 03/05/17 03/05/17 03/05/17 23:00 03:00 07:58 08:00 Temp 98.6 97.9 98.4 98.6 97.9 98.4 Pulse 98 99 84 Resp 16 18 16 B/P (MAP) 110/72 (85) 130/59 (82) 126/80 (95) Pulse Ox 93 94 94 O2 Delivery Room Air Room Air Room Air Room Air 03/05/17 03/05/17 03/05/17 03/05/17 08:40 09:40 11:10 11:47 Temp 97.7 97.7 Pulse 91 Resp 20 B/P (MAP) 149/66 (93) Pulse Ox 97 O2 Delivery Room Air Room Air Room Air Room Air 03/05/17 03/05/17 03/05/17 03/05/17 12:47 13:31 14:42 15:16 Temp 98.3 98.3 Pulse 85 Resp 18 B/P (MAP) 133/79 (97) Pulse Ox 96 O2 Delivery Room Air Room Air Room Air Room Air 03/05/17 17:20 O2 Delivery Room Air Intake and Output 03/04/17 03/04/17 03/05/17 15:00 23:00 07:00 Intake Total 400 ml Output Total 2200 ml Balance -2200 ml 400 ml DAISY BUTCHER MD Mar 05, 2017 18:08
[2017-03-05 19:20] VITALS: BP 135/72
[2017-03-05] MEDS: LACTOBACILLUS RHAMNOSUS GG 1 CAPSULE. PO SCH (21:20)
[2017-03-05 23:16] VITALS: BP 134/67
[2017-03-06] MEDS: VANCOMYCIN 1.5 GM in IV DEXTROSE 5% 500 ML IV SCH ×2 (01:00→10:14)
[2017-03-06] MEDS: oxyCODONE/APAP 5/325 1 TAB TABLET PO PRN ×3 (01:49→10:27)
[2017-03-06 03:03] VITALS: BP 133/68
[2017-03-06] MEDS: PIPERACILLIN/TAZO IV Push 3.375 GM VIAL. IVP SCH ×2 (05:59→12:47)
[2017-03-06 07:46] VITALS: BP 111/60
[2017-03-06] MEDS: LACTOBACILLUS RHAMNOSUS GG 1 CAPSULE. PO SCH (08:38)
[2017-03-06] MEDS: ENOXAPARIN 40 MG/0.4 ML SYRINGE. SQ SCH (08:39)
[2017-03-06] MEDS: NICOTINE 21MG PATCH. TD SCH (08:39)
--- NOTE | 2017-03-06 08:49 | PDOC ---
SURGICAL PROGRESS NOTE Subjective wants to get home Vital Signs Vital Signs Date Time Temp Pulse Resp B/P (MAP) Pulse Ox O2 Delivery O2 Flow Rate FiO2 03/06/17 07:01 17 96 Room Air 03/06/17 03:03 98.3 78 133/68 (89) 98.3 I&O Intake and Output 03/06/17 07:00 Intake Total 2620 ml Output Total 500 ml Balance 2120 ml Intake Oral 1580 ml IV Total 1040 ml Output Urine Total 500 ml # Voids 7 General: Alert, Oriented X3, Cooperative, No acute distress Skin: Other (wound with packing in place) Labs Laboratory Tests Test 03/04/17 22:22 03/05/17 03:00 03/05/17 05:00 Vancomycin Level Trough 29.1 mcg/mL (10.0-20.0) Vancomycin Last Dose Date Vancomycin Last Dose Time 1500 Sodium Level 141 mmol/L (136-145) Potassium Level 3.7 mmol/L (3.5-5.1) Chloride Level 102 mmol/L (98-107) Carbon Dioxide Level 27 mmol/L (21-32) Anion Gap 12 (6-14) Blood Urea Nitrogen 14 mg/dL (8-26) Creatinine 0.9 mg/dL (0.7-1.3) Estimated GFR (Cockcroft-Gault) 98.4 Glucose Level 44 mg/dL (70-99) Calcium Level 8.7 mg/dL (8.5-10.1) White Blood Count 19.5 x10^3/uL (4.0-11.0) Red Blood Count 4.49 x10^6/uL (4.30-5.70) Hemoglobin 14.4 g/dL (13.0-17.5) Hematocrit 42.8 % (39.0-53.0) Mean Corpuscular Volume 95 fL (79-100) Mean Corpuscular Hemoglobin 32 pg (25-35) Mean Corpuscular Hemoglobin Concent 34 g/dL (31-37) Red Cell Distribution Width 13.1 % (11.5-14.5) Platelet Count 238 x10^3/uL (140-400) Neutrophils (%) (Auto) 82 % (31-73) Lymphocytes (%) (Auto) 11 % (24-48) Monocytes (%) (Auto) 6 % (0-9) Eosinophils (%) (Auto) 1 % (0-3) Basophils (%) (Auto) 1 % (0-3) Neutrophils # (Auto) 16.0 x10^3uL (1.8-7.7) Lymphocytes # (Auto) 2.1 x10^3/uL (1.0-4.8) Monocytes # (Auto) 1.1 x10^3/uL (0.0-1.1) Eosinophils # (Auto) 0.1 x10^3/uL (0.0-0.7) Basophils # (Auto) 0.1 x10^3/uL (0.0-0.2) Segmented Neutrophils % 88 % (35-66) Lymphocytes % 4 % (24-48) Atypical Lymphocytes % (Manual) 1 % (0-0) Monocytes % 7 % (0-10) Platelet Estimate Adequate (ADEQUATE) Problem List Problems Medical Problems: (1) Cellulitis and abscess of buttock Status: Acute (2) Pilonidal abscess Status: Acute (3) Pilonidal cyst Status: Acute (4) Smoking addiction Status: Acute Assessment/Plan s/p I&D wound care, will have nurse show spouse abx, cultures pending Problems: [employer]IA [employer] Mar 06, 2017 08:49
[2017-03-06] MEDS: VANCOMYCIN PER PHARMACY MC PRN (09:08)
[2017-03-06] MEDS ORDERED: HYDR-971 PO (10:26)
[2017-03-06] MEDS ORDERED: DOXY100C2 PO (10:26)
[2017-03-06 11:22] VITALS: BP 150/91
--- NOTE | 2017-03-31 09:27 | PDOC3 ---
Discharge Summary Visit Information Date of Admission: Mar 03, 2017 Date of Discharge: Mar 06, 2017 Admitting Diagnosis: rectal pain Final Diagnosis pilonidal cyst with abcess, s/p i and d on 03/04 tobaccoism sepsis obesity, BMI 33 History of Present Illness History of Present Illness I AND D with sx POD #1 cont IV abx wound care fu with wound cx pain control Problems Medical Problems: (1) Cellulitis and abscess of buttock Status: Acute (2) Pilonidal abscess Status: Acute (3) Pilonidal cyst Status: Acute (4) Smoking addiction Status: Acute Brief Hospital Course Allergies Allergies Coded Allergies Type Severity Reaction Last Updated Verified No Known Drug Allergies 02/10/14 No Brief Hospital Course Mr. Almonte is a 31 old male, admit iwth pain, cyst taken to OR on 03/04, Dr Alegria I+D pain better, IV abx days dc home Discharge Information Condition at Discharge: Improved Follow Up: Weeks Scheduled Doxycycline Hyclate (Doxycycline Hyclate), 1 CAP PO BID Omeprazole (Omeprazole), 20 MG PO DAILY Scheduled PRN Hydrocodone/Apap 5-325 (Moroni 5-325 Tablet), 1 TAB PO PRN Q6HRS PRN for PAIN DAISY BUTCHER MD Mar 31, 2017 09:27
== END 2017-03-06 14:00 | disposition home or self-care (01) | DRG 854 ==
LOC: ER 21:26 → 4 NORTH 22:59
PROVIDERS: ADMIT Internal Medicine; ATTEND Internal Medicine
PROC: 0J990ZZ Drainage of Buttock Subcutaneous Tissue and Fascia, Open Approach (ICD-10-PCS; principal; 2017-03-04 14:00)
DX: A41.9 Sepsis, unspecified organism (principal); L03.317 Cellulitis of buttock; F17.200 Nicotine dependence, unspecified, uncomplicated; L05.01 Pilonidal cyst with abscess; Z83.3 Family history of diabetes mellitus; Z71.6 Tobacco abuse counseling
CPT/HCPCS: 36415; 74177; 80048; 80053; 80202; 83605; 84145; 85007; 85025; 85610; 85651; 85730; 86140; 87040; 87071; 87075; 87205; 96374; J0330; J0780; J1100; J1650; J1885; J2270; J2405; J2543; J2704; J2710; J3010; J3370; J3490; J7030; J7120; Q9967; 99285-25; A4461; J2001

== ENCOUNTER 2018-06-06 16:58 | Emergency (ER) | payer SELFPAY ==
[~2018-06-06] VITALS: Ht 170.2 cm; Wt 104.3 kg
[~2018-06-06 16:58] MED LIST changes: +DOXY100C2 PO; +HYDR-3164 PO; -HYDR-971 PO
[2018-06-06] MEDS ORDERED: ONDANSETRON PF 4 MG/2 ML VIAL. IV ONE (18:45)
[2018-06-06] MEDS ORDERED: MORPHINE SULFATE 4 MG/ML VIAL. IV ONE ×2 (18:45→20:45)
[2018-06-06] MEDS ORDERED: IV NORMAL SALINE 1000ML BAG 1,000 ML IV ONE (18:45)
[2018-06-06 19:13] LABS: BILIRUBIN,URINE NEGATIVE (NEG); CLARITY,URINE CLEAR; COLOR,URINE YELLOW; NITRITE,URINE NEGATIVE (NEG); PROTEIN,URINE NEGATIVE (NEG-TRACE)
[2018-06-06 19:13] LABS: BASO # 0.1 x10^3/uL (0.0-0.2); BASO % 1 % (0-3); EOS # 0.2 x10^3/uL (0.0-0.7); EOS % 2 % (0-3); HEMATOCRIT 48.3 % (39.0-53.0); HEMOGLOBIN 16.5 g/dL (13.0-17.5); LYMPH # 2.8 x10^3/uL (1.0-4.8); LYMPH % 25 % (24-48); MEAN CORPUSCULAR HEMOGLOBIN 31 pg (25-35); MEAN CORPUSCULAR HGB CONC 34 g/dL (31-37); MEAN CORPUSCULAR VOLUME 92 fL (79-100); MONO # 0.7 x10^3/uL (0.0-1.1); MONO % 7 % (0-9); NEUT # 7.4 x10^3uL (1.8-7.7); NEUT % 66 % (31-73); PLATELET COUNT 263 x10^3/uL (140-400); RED BLOOD COUNT 5.25 x10^6/uL (4.30-5.70); RED CELL DISTRIBUTION WIDTH 13.7 % (11.5-14.5); WHITE BLOOD COUNT 11.2 x10^3/uL (4.0-11.0)
[2018-06-06 19:31] LABS: CALCIUM 8.8 mg/dL (8.5-10.1); CREATININE 0.8 mg/dL (0.7-1.3); POTASSIUM 3.8 mmol/L (3.5-5.1)
[2018-06-06 19:36] LABS: ALBUMIN 3.6 g/dL (3.4-5.0); ALBUMIN/GLOBULIN RATIO 1.1 (1.0-1.7); TOTAL BILIRUBIN 0.5 mg/dL (0.2-1.0)
[2018-06-06 19:36] LABS: BACTERIA,URINE 0 /HPF (0-FEW); RBC,URINE 0 /HPF (0-2); SQUAMOUS EPITHELIAL CELL,UR FEW /LPF; WBC,URINE OCC /HPF (0-4)
[2018-06-06] MEDS ORDERED: OMEP40CA5 PO (21:22)
[2018-06-06 21:33] VITALS: BP 117/91
--- NOTE | 2018-06-06 21:38 | RAD ---
Indication:RUQ PAIN TECHNIQUE: Grayscale, color Doppler and spectral waveform is of the abdomen obtained. COMPARISON:CT from 03/03/2017 FINDINGS: Visualized pancreas is within normal limits. Body and tail not visualized due to overlying bowel gas IVC is within normal limits. Main portal vein is patent. Liver is mildly enlarged measuring 18.3 cm in length with normal echogenicity. No gallstones, pericholecystic fluid or gallbladder wall thickening. CBD measures 3 mm in diameter and is within normal limits. Right kidney measures 11.4 cm in length without hydronephrosis. IMPRESSION: 1. Mild hepatomegaly. 2. No cholelithiasis or sonographic evidence of acute cholecystitis. Electronically signed by: Piter Morales DO (06/06/2018 9:36 PM) [facility]
--- NOTE | 2018-06-06 23:08 | PHYS DOC ---
Past Medical History Past Medical History: No Pertinent History, Other Additional Past Medical Histor: lower back injury Past Surgical History: No Surgical History Additional Information: 1 PACK/DAY Alcohol Use: None Drug Use: None Adult General Chief Complaint Chief Complaint: ABDOMINAL PAIN HPI HPI Patient is a 32 year old M P/W CC OF RUQ PAIN INTERMITTENT X 7 MONTHS OR LONGER WORSE WITH EATING. THE LAST TWO DAYS IT IS WORSE. Review of Systems Review of Systems Constitutional: Denies fever or chills [] Eyes: Denies change in visual acuity, redness, or eye pain [] HENT: Denies nasal congestion or sore throat [] Musculoskeletal: Denies back pain or joint pain [] All other systems were reviewed and found to be within normal limits, except as documented in this note. Current Medications Current Medications Current Medications Medications (Trade) Dose Ordered Sig/Samantha Start Time Stop Time Status Last Admin Dose Admin Morphine Sulfate (Morphine Sulfate) 4 mg 1X ONCE 06/06/18 20:45 06/06/18 20:46 DC 06/06/18 20:47 4 MG Ondansetron HCl (Zofran) 4 mg 1X ONCE 06/06/18 18:45 06/06/18 18:46 DC 06/06/18 18:44 4 MG Sodium Chloride 1,000 ml @ 1,000 mls/hr 1X ONCE 06/06/18 18:45 06/06/18 19:44 DC 06/06/18 18:44 1,000 MLS/HR Allergies Allergies Allergies Coded Allergies Type Severity Reaction Last Updated Verified No Known Drug Allergies 02/10/14 No Physical Exam Physical Exam Constitutional: Well developed, well nourished, no acute distress, non-toxic appearance. [] HENT: Normocephalic, atraumatic, bilateral external ears normal, oropharynx moist, no oral exudates, nose normal. [] Eyes: PERRLA, EOMI, conjunctiva normal, no discharge. [] Neck: Normal range of motion, no tenderness, supple, no stridor. [] Cardiovascular:Heart rate regular rhythm, no murmur [] Lungs & Thorax: Bilateral breath sounds clear to auscultation [] Abdomen: Bowel sounds normal, soft, RUQ tenderness, no masses, no pulsatile masses. [] Skin: Warm, dry, no erythema, no rash. [] Back: No tenderness, no CVA tenderness. [] Extremities: No tenderness, no cyanosis, no clubbing, ROM intact, no edema. [] Neurologic: Alert and oriented X 3, normal motor function, normal sensory function, no focal deficits noted. [] Psychologic: Affect normal, judgement normal, mood normal. [] Current Patient Data Vital Signs Vital Signs Date Time Temp Pulse Resp B/P (MAP) Pulse Ox O2 Delivery O2 Flow Rate FiO2 06/06/18 21:33 78 16 117/91 (100) 94 Room Air 06/06/18 18:36 98.2 98.2 Lab Values Laboratory Tests Test 06/06/18 18:20 06/06/18 18:40 Urine Collection Type Unknown Urine Color Yellow Urine Clarity Clear Urine pH 6.0 Urine Specific [place] 1.010 Urine Protein Negative mg/dL (NEG-TRACE) Urine Glucose (UA) Negative mg/dL (NEG) Urine Ketones (Stick) Negative mg/dL (NEG) Urine Blood Negative (NEG) Urine Nitrite Negative (NEG) Urine Bilirubin Negative (NEG) Urine Urobilinogen Dipstick 1.0 mg/dL (0.2 mg/dL) Urine Leukocyte Esterase Negative (NEG) Urine RBC 0 /HPF (0-2) Urine WBC Occ /HPF (0-4) Urine Squamous Epithelial Cells Few /LPF Urine Bacteria 0 /HPF (0-FEW) White Blood Count 11.2 x10^3/uL (4.0-11.0) H Red Blood Count 5.25 x10^6/uL (4.30-5.70) Hemoglobin 16.5 g/dL (13.0-17.5) Hematocrit 48.3 % (39.0-53.0) Mean Corpuscular Volume 92 fL (79-100) Mean Corpuscular Hemoglobin 31 pg (25-35) Mean Corpuscular Hemoglobin Concent 34 g/dL (31-37) Red Cell Distribution Width 13.7 % (11.5-14.5) Platelet Count 263 x10^3/uL (140-400) Neutrophils (%) (Auto) 66 % (31-73) Lymphocytes (%) (Auto) 25 % (24-48) Monocytes (%) (Auto) 7 % (0-9) Eosinophils (%) (Auto) 2 % (0-3) Basophils (%) (Auto) 1 % (0-3) Neutrophils # (Auto) 7.4 x10^3uL (1.8-7.7) Lymphocytes # (Auto) 2.8 x10^3/uL (1.0-4.8) Monocytes # (Auto) 0.7 x10^3/uL (0.0-1.1) Eosinophils # (Auto) 0.2 x10^3/uL (0.0-0.7) Basophils # (Auto) 0.1 x10^3/uL (0.0-0.2) Sodium Level 142 mmol/L (136-145) Potassium Level 3.8 mmol/L (3.5-5.1) Chloride Level 103 mmol/L (98-107) Carbon Dioxide Level 29 mmol/L (21-32) Anion Gap 10 (6-14) Blood Urea Nitrogen 9 mg/dL (8-26) Creatinine 0.8 mg/dL (0.7-1.3) Estimated GFR (Cockcroft-Gault) 112.0 BUN/Creatinine Ratio 11 (6-20) Glucose Level 114 mg/dL (70-99) H Calcium Level 8.8 mg/dL (8.5-10.1) Total Bilirubin 0.5 mg/dL (0.2-1.0) Aspartate Amino Transferase (AST) 15 U/L (15-37) Alanine Aminotransferase (ALT) 25 U/L (16-63) Alkaline Phosphatase 85 U/L (46-116) Total Protein 7.0 g/dL (6.4-8.2) Albumin 3.6 g/dL (3.4-5.0) Albumin/Globulin Ratio 1.1 (1.0-1.7) Lipase 172 U/L (73-393) Laboratory Tests 06/06/18 18:40 Laboratory Tests 06/06/18 18:40 EKG EKG [] Radiology/Procedures Radiology/Procedures [] Impressions: Body and tail not visualized due to overlying bowel gas IVC is within normal limits. Main portal vein is patent. Liver is mildly enlarged measuring 18.3 cm in length with normal echogenicity. No gallstones, pericholecystic fluid or gallbladder wall thickening. CBD measures 3 mm in diameter and is within normal limits. Right kidney measures 11.4 cm in length without hydronephrosis. IMPRESSION: 1. Mild hepatomegaly. 2. No cholelithiasis or sonographic evidence of acute cholecystitis. Electronically signed by: Piter Hooper DO (06/06/2018 9:36 PM) [facility] DICTATED and SIGNED BY: PITER HOOPER DO DATE: 06/06/182133 Course & Med Decision Making Course & Med Decision Making Pertinent Labs and Imaging studies reviewed. (See chart for details) 32 YO M RUQ PAIN NORMAL LABS AND RUQ PAIN RECOMMENDED DIET CONTROL, ANTACID F/U PRIMARY FOR FURTHER INSTRUCTIONS IF SYMPTOMS PERSIST. GIVEN DURATION OF SYMPTOMS AND NORMAL ER WORKUP DOUBT ACUTE PATHOLGOY Ramya Disclaimer Ramya Disclaimer This electronic medical record was generated, in whole or in part, using a voice recognition dictation system. Departure Departure Impression: Primary Impression: RUQ abdominal pain Disposition: 01 HOME, SELF-CARE Condition: STABLE Referrals: NO PCP (PCP) Patient Instructions: Abdominal Pain (Nonspecific) Scripts Omeprazole (OMEPRAZOLE) 40 Mg Capsule.dr 1 CAP PO DAILY, #30 CAP 3 Refills Prov: KATIE SARMIENTO MD 06/06/18 KATIE SARMIENTO MD Jun 06, 2018 23:08
== END 2018-06-06 21:46 | disposition home or self-care (01) ==
LOC: ER 16:58
DX: R10.11 Right upper quadrant pain (principal); R16.0 Hepatomegaly, not elsewhere classified; F17.200 Nicotine dependence, unspecified, uncomplicated
CPT/HCPCS: 36415; 76705; 80053; 81001; 83690; 85025; 96374; 96375; 96376; 99284; J2270; J2405; J7030

== ENCOUNTER 2021-08-02 00:32 | Emergency (ER) | payer SELFPAY ==
[~2021-08-02] VITALS: Ht 170.2 cm; Wt 113.0 kg
[~2021-08-02 00:32] MED LIST changes: -DOXY100C2 PO; +DOXY100C3 PO; -OMEP20TA8 PO; +OMEP20TA91 PO; +OMEP40CA7 PO
[2021-08-02] MEDS ORDERED: IV NORMAL SALINE 1000ML BAG 1,000 ML IV ONE (00:45)
[2021-08-02 00:54] LABS: BASO # 0.2 x10^3/uL (0.0-0.2); BASO % 1 % (0-3); EOS # 0.3 x10^3/uL (0.0-0.7); EOS % 3 % (0-3); HEMATOCRIT 45.3 % (39.0-53.0); HEMOGLOBIN 15.6 g/dL (13.0-17.5); LYMPH % 25 % (24-48); MEAN CORPUSCULAR HEMOGLOBIN 32 pg (25-35); MEAN CORPUSCULAR HGB CONC 35 g/dL (31-37); MEAN CORPUSCULAR VOLUME 92 fL (79-100); MONO # 0.7 x10^3/uL (0.0-1.1); MONO % 6 % (0-9); NEUT # 7.7 x10^3/uL (1.8-7.7); NEUT % 65 % (31-73); PLATELET COUNT 302 x10^3/uL (140-400); RED BLOOD COUNT 4.93 x10^6/uL (4.30-5.70); RED CELL DISTRIBUTION WIDTH 13.8 % (11.5-14.5); WHITE BLOOD COUNT 11.8 x10^3/uL (4.0-11.0)
[2021-08-02 01:05] LABS: CALCIUM 8.6 mg/dL (8.5-10.1); CREATININE 0.9 mg/dL (0.7-1.3); POTASSIUM 3.6 mmol/L (3.5-5.1)
[2021-08-02 01:10] LABS: ALBUMIN/GLOBULIN RATIO 1.2 (1.0-1.7); MAGNESIUM 2.1 mg/dL (1.8-2.4); TOTAL BILIRUBIN 0.3 mg/dL (0.2-1.0); TOTAL PROTEIN 7.4 g/dL (6.4-8.2)
[2021-08-02 01:11] LABS: ACETAMIN < 2 mcg/ml (10-30); ETHANOL 192 mg/dL (0-10)
--- NOTE | 2021-08-02 01:26 | RAD ---
CT head without contrast. CT cervical spine without contrast. PQRS statement: CT scans at this facility use dose reduction including either automated exposure cont rol, iterative reconstructions, and /or weight based radiation dosing via mA and kV modification when appropriate to reduce radiation dose to as low as reasonably achievable. HISTORY: Alcohol intoxication, unresponsive, altered mental status, found down. CTA findings: No intracranial hemorrhage, mass, hydrocephalus, extra-axial fluid collection or infarc tion. The left anterior frontal white matter demonstrates subtle asymmetric hypoattenuation images 21 -23 this could be an artifact versus true hypoattenuation of the white matter, there is no discrete s welling at this location, this could represent age-indeterminate ischemic or demyelinating changes of the white matter. Opacification and mucosal thickening of the ethmoid and maxillary sinuses. Orbits, mastoids and bones are unremarkable. IMPRESSION: 1. No acute traumatic intracranial CT abnormality. 2. Indistinct asymmetric hypoattenuation of the left anterior frontal lobe white matter, this may be an artifact although hypoattenuation due to age indeterminate ischemic or demyelinating changes are a lso a possibility. There is no brain swelling at this location to otherwise suggest edema. This could be further assessed with MR imaging. 3. Ethmoid and maxillary sinusitis. 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 Craniocervical junction is intact. Cervical vertebral body height and alignment intact. No fracture of the cervical spine. Lung apices and paraspinal tissues are unremarkable. IMPRESSION: No acute osseous injury of the cervical spine. Electronically signed by: Casimiro Suh MD (08/02/2021 1:24 AM) [facility]
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
[2021-08-02 05:45] VITALS: BP 176/81
[2021-08-02 05:51] LABS: AMPHETAMINE/METHAMPHETAMINE NEG (NEG); BARBITURATES NEG (NEG); BENZODIAZEPINES NEG (NEG); CANNABINOIDS NEG (NEG); COCAINE NEG (NEG); METHADONE NEG (NEG); OPIATES NEG (NEG); PHENCYCLIDINE NEG (NEG)
[2021-08-02 06:17] LABS: BACTERIA,URINE 0 /HPF (0-FEW); RBC,URINE 0 /HPF (0-2); WBC,URINE 0 /HPF (0-4)
== END 2021-08-02 06:15 | disposition left against medical advice (07) ==
LOC: ER 00:32
DX: F10.229 Alcohol dependence with intoxication, unspecified (principal); Y90.6 Blood alcohol level of 120-199 mg/100 ml; F17.200 Nicotine dependence, unspecified, uncomplicated
CPT/HCPCS: 36415; 70450; 72125; 80053; 80307; 80329; 81001; 83735; 85025; 96360; 96361; 99285; G0480; J7030